=== PATIENT | male | born 1940 | race Caucasian/White ===

== ENCOUNTER → 2018-10-13 | Day surgery (SDC) | payer MEDICARE, OTHER ==
[~2018-10-13] MED LIST: ASPIRIN81 MG PO; FENOFIBRIC ACI105 MG PO; FENTANYL CITRATE/PF 100MCG/2 ML INJ ONE; LEVOTHYROXINE50 MCG PO; METFORMIN HCL500 MG PO; MIDAZOLAM HCL 2 MG/2 ML VIAL ONE; MULTIPLE VITAM1 EAC2 PO; PROPOFOL IV EMULSION 10 MG/ML 50 ML VIAL ONE; VASOTEC5 MG PO; VITAMIN E400 UNI1 PO; ZOCOR40 MG PO
--- NOTE | 2018-10-13 07:05 | NUR ---
SPIRITUAL CARE - Pre-Surgery Assessment: Pt in bed. Pt's at bedside. Pt reported supportive attention from family and friends. Intervention: I provided pastoral presence, hospitality, and sympathetic listening. I acquainted pt with availability of quantitative analyst while hospitalized. Outcome: Pt expressed appreciation for visit. No need for follow up indicated at this time. REINIER Delgadolain Spiritual Care Department O: [phone] Pager: [phone] ([phone] number calling from)
[2018-10-13 09:55] VITALS: BP 130/70
== END | disposition home or self-care (01) ==
LOC: OR 05:48
PROVIDERS: ATTEND Internal Medicine Gastroenterology
DX: K29.70 Gastritis, unspecified, without bleeding (principal); D12.5 Benign neoplasm of sigmoid colon; D12.8 Benign neoplasm of rectum; K26.9 Duodenal ulcer, unspecified as acute or chronic, without hemorrhage or perforation; K44.9 Diaphragmatic hernia without obstruction or gangrene; K29.80 Duodenitis without bleeding; K57.30 Diverticulosis of large intestine without perforation or abscess without bleeding; R15.9 Full incontinence of feces; K64.8 Other hemorrhoids; G47.33 Obstructive sleep apnea (adult) (pediatric); I10 Essential (primary) hypertension; E11.9 Type 2 diabetes mellitus without complications; E78.5 Hyperlipidemia, unspecified; Z01.810 Encounter for preprocedural cardiovascular examination; Z79.82 Long term (current) use of aspirin; Z79.84 Long term (current) use of oral hypoglycemic drugs; Z68.34 Body mass index [BMI] 34.0-34.9, adult
CPT/HCPCS: 36415; 43239; 45380; 45384; 82948; 88305; 88312; 93005; J2250; J2704

== ENCOUNTER 2018-12-02 17:21 | Inpatient (IN) | payer MEDICARE, OTHER ==
[~2018-12-02] VITALS: Ht 177.8 cm; Wt 99.4 kg
[~2018-12-02 17:21] MED LIST changes: -FENTANYL CITRATE/PF 100MCG/2 ML INJ ONE; -MIDAZOLAM HCL 2 MG/2 ML VIAL ONE; -PROPOFOL IV EMULSION 10 MG/ML 50 ML VIAL ONE
[2018-12-02] MEDS ORDERED: CEFTRIAXONE SOD 1 GM/NS 50 ML 50 ML IV STA (17:38)
[2018-12-02] MEDS ORDERED: SODIUM CHLORIDE 0.9% 1000ML 1,000 ML IV STA (17:38)
[2018-12-02] MEDS ORDERED: ASPIRIN 81 MG CHEW TAB PO ONE (17:45)
[2018-12-02] MEDS ORDERED: ALBUTEROL SULF 0.083% NEB SOLN 3 ML NEB NEB STA (17:46)
[2018-12-02] MEDS ORDERED: IPRATROPIUM BROMIDE 0.02% 2.5 ML NEB NEB STA (17:46)
[2018-12-02 18:08] LABS: ABG HCO3 24 mmol/L (23-28); ABG PCO2 37 mmHg (41-51); ABG PH 7.42 (7.31-7.41); ABG PO2 74 mmHg (80-105)
[2018-12-02 18:15] LABS: BILIRUBIN,URINE NEGATIVE (NEGATIVE); CLARITY,URINE SL CLOUDY (CLEAR); COLOR,URINE YELLOW (YELLOW); KETONES,URINE NEGATIVE (NEGATIVE); LEUKOCYTE ESTERASE ,URINE TRACE (NEGATIVE); NITRITE,URINE NEGATIVE (NEGATIVE); PROTEIN,URINE DIPSTICK TRACE (NEGATIVE); URINE UROBILINOGEN 1 mg/dL (0.2 - 1)
[2018-12-02 18:21] LABS: BASOPHILS % 0.2 % (0.0-1.0); EOSINOPHILS # (AUTO) 0.4 (0.0-0.4); EOSINOPHILS % 2.8 % (0.0-6.0); HEMATOCRIT 36.3 % (38.2-49.6); HEMOGLOBIN 11.3 g/dL (14.0-18.0); LYMPHOCYTES # (AUTO) 1.8 (1.0-3.2); LYMPHOCYTES % 13.2 % (18.0-39.1); MEAN CORPUSCULAR HEMOGLOBIN 28.5 pg (28-32); MEAN CORPUSCULAR HGB CONC 31.1 g/dL (31-35); MEAN CORPUSCULAR VOLUME 91.4 fL (81-99); MONOCYTES # (AUTO) 1.1 (0.2-0.8); NEUTROPHILS # (AUTO) 10.3 (2.1-6.9); NEUTROPHILS % 74.4 % (38.7-80.0); PLATELET COUNT 322 x10e3/uL (140-360); RED BLOOD COUNT 3.97 x10e6/uL (4.3-5.7); RED CELL DISTRIBUTION WIDTH 15.2 % (11.7-14.4)
[2018-12-02 18:24] LABS: INR 0.95; PROTHROMBIN TIME 13.2 seconds (11.9-14.5)
[2018-12-02 18:25] LABS: PARTIAL THROMBOPLASTIN TIME 24.3 seconds (23.8-35.5)
[2018-12-02 18:34] LABS: ALANINE AMINOTRANSFERASE 13 IU/L (0-55); ALBUMIN 3.3 g/dL (3.5-5.0); ALBUMIN/GLOBULIN RATIO 0.8 (0.8-2.0); ALKALINE PHOSPHATASE 51 IU/L (40-150); BLOOD UREA NITROGEN 17 mg/dL (7-26); BUN/CREATININE RATIO 16 (6-25); CALCIUM 10.5 mg/dL (8.4-10.2); CARBON DIOXIDE 25 mmol/L (22-29); CHLORIDE 106 mmol/L (98-107); CREATINE KINASE 137 IU/L (30-200); CREATININE, SERUM 1.09 mg/dL (0.72-1.25); EST GLOMERULAR FILTRATION RATE > 60 ML/MIN (60-); GLUCOSE 89 mg/dL (74-118); MAGNESIUM 2.3 MG/DL (1.3-2.1); SODIUM 143 mmol/L (136-145)
[2018-12-02] MEDS ORDERED: SUCCINYLCHOLINE CHLORIDE 20 MG/ML 10ML VIAL ONE (18:41)
[2018-12-02] MEDS ORDERED: ETOMIDATE 2 MG/ML 10 ML INJ IV ONE (18:41)
[2018-12-02] MEDS: AZITHROMYCIN 500MG/NS 250 ML 250 ML IV ONE ×2 (18:47→20:00)
[2018-12-02 18:53] LABS: THYROID STIMULATING HORMONE 2.637 uIU/mL (0.350-4.940)
--- NOTE | 2018-12-02 18:55 | NUR ---
bedside report given to trevor deleon
--- NOTE | 2018-12-02 18:57 | Diagnostic Imaging Report ---
EXAMINATION: PA and lateral views of the chest. COMPARISON: None CLINICAL HISTORY: Bronchitis DISCUSSION: Lines/tubes: None. Lungs: Large left effusion with adjacent atelectasis. Additional pathology may be obscured. Pulmonary venous congestion. Heart and mediastinum: Cardiomegaly. Bones and soft tissues: No acute bony abnormalities. IMPRESSION: Cardiomegaly with large left effusion and adjacent atelectasis. Additional pathology may be obscured. Pulmonary venous congestion. Signed by: Dr. Yuval Oconnell M.D. on 12/02/2018 6:54 PM
[2018-12-02] MEDS: ALBUTEROL SULF 0.083% NEB SOLN 3 ML NEB NEB SCH (19:00)
[2018-12-02] MEDS ORDERED: SODIUM CHLORIDE 0.9% 1000ML 1,000 ML IV SCH (19:39)
[2018-12-02] MEDS ORDERED: SODIUM CHLORIDE FLUSH 10 ML SYR INJ PRN (19:45)
[2018-12-02] MEDS ORDERED: AZITHROMYCIN 500MG/SOD CHL 0.9% 250ML BAG IV SCH (19:45)
[2018-12-02] MEDS ORDERED: CEFTRIAXONE SOD 1 GRAM/0.9% SOD CHL 50ML BAG IV SCH (19:45)
--- OUTSIDE RECORDS SUMMARY | 2018-12-02 19:52 | XMS REPORT ---
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 Allergies, Adverse Reactions, Alerts This patient has no known allergies or adverse reactions. Medications This patient has no known medications. Results Test Description Test Time Test Comments Text Results Atomic Results Result Comments CHEST 2 VIEWS 2018-12-02 18:50:00 [facility] [address] [address] Patient Name: ROLO MOLINA MR #: [id number] : 1940 Age/Sex: 78/M Req #: [id number] Adm Physician: Ordered by: STEFAN MERIDA MILL LABORER Report #: [id number] Location: ER Room/Bed: Procedure: [id number] DX/CHEST 2 VIEWS Exam Date: 12/02/18 Exam Time: 1810 REPORT STATUS: Signed EXAMINATION: PA and lateral views of the chest. JEFFRY RISON: None CLINICAL HISTORY: Bronchitis DISCUSSION: Lines/tubes: None. Lungs: Large left effusion with adjacent atelectasis. Additional pathology may be obscured. Pulmonary venous congestion. Heart and mediastinum: Cardiomegaly. Bones and soft tissues: No acute bony abnormalities. IMPRESSION: Cardiomegaly with large left effusion and adjacent atelectasis. Additional pathology may be obscured. Pulmonary venous congestion. Signed by: Dr. Barrington Ramires M.D. on 12/02/2018 6:54 PM Dictated By: BARRINGTON RAMIRES MD 53 Transcribed By: MARIBELL on 12/02/181853 COPY TO: STEFAN MERIDA NP
--- NOTE | 2018-12-02 20:02 | Diagnostic Imaging Report ---
EXAMINATION: CT scan of the chest with contrast. TECHNIQUE: Helical CT images of the chest were performed from the lung apices to the level of the adrenal glands after the intravenous administration of 100 cc of Omnipaque 300. Coronal and sagittal reformatted images were obtained.Dose modulation, iterative reconstruction, and/or weight based adjustment of the mA/kV was utilized to reduce the radiation dose to as low as reasonably achievable. COMPARISON: None. CLINICAL HISTORY:Bronchitis, pneumonia DISCUSSION: LINES/TUBES: None. LUNGS AND AIRWAYS: Interstitial lung disease with architectural distortion reticulations and subpleural honeycombing predominantly in the upper lungs. Compressive atelectasis in the left lung PLEURA: Circumferential left pleural thickening with focal nodular involvement in the left lower lung on image 57 which measures 2.4 cm. In the right lung on image 52 a 5.2 cm pleural-based nodular area HEART AND MEDIASTINUM: The thyroid gland is normal. The heart and pericardium are within normal limits. LYMPH NODES: Enlarged right lower paratracheal lymph node 1.4 cm. Additional mediastinal lymph nodes. ABDOMEN: Limited contrast-enhanced views of the upper abdomen show no abnormality within the visualized liver, spleen, pancreas, or kidneys. The adrenal glands are normal. BONES AND SOFT TISSUES: No acute bony abnormalities. IMPRESSION: Circumferential left pleural thickening/nodularity and right pleural mass with large left effusion. 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 Tissue sampling recommended. Underlying interstitial lung disease with fibrosis and honeycombing. Signed by: Dr. Yuval Oconnell M.D. on 12/02/2018 7:59 PM
[2018-12-02] MEDS: CEFTRIAXONE SOD 1 GM/NS 50 ML 50 ML IV SCH (20:21)
[2018-12-02] MEDS: AZITHROMYCIN 500MG/NS 250 ML 250 ML IV SCH (20:21)
[2018-12-02] MEDS ORDERED: VASOTEC5 MG PO (20:30)
[2018-12-02] MEDS ORDERED: ENALAPRIL MALEATE 5 MG TAB ONE (20:53)
[2018-12-02] MEDS ORDERED: NITROGLYCERIN 2% OINT 1 GM PKT ONE (20:53)
[2018-12-02] MEDS ORDERED: DIPHENHYDRAMINE HCL INJ 50 MG/ML VIAL IV PRN (21:00)
[2018-12-02] MEDS ORDERED: ONDANSETRON HCL INJ 2MG/ML 2ML 2 MG/ML VIAL IV PRN (21:00)
[2018-12-02] MEDS ORDERED: MORPHINE SULFATE 2 MG/ML SYR 1ML IV PRN (21:00)
[2018-12-02] MEDS ORDERED: FUROSEMIDE INJ 10 MG/ML 4 ML VIAL IV ONE (21:00)
[2018-12-02] MEDS ORDERED: NITROGLYCERIN 2% OINT 1 GM PKT TOP ONE ×2 (21:00→22:00)
[2018-12-02] MEDS ORDERED: ENALAPRILAT IV INJ 1.25 MG/ML VIAL IV PRN (21:00)
[2018-12-02] MEDS ORDERED: ACETAMINOPHEN 325 MG TAB PO PRN (21:00)
[2018-12-02] MEDS: ENALAPRIL MALEATE 5 MG TAB PO SCH (21:01)
--- NOTE | 2018-12-02 21:01 | NUR ---
pt c elevated bp. dr cee informed. to room to medicate c enalapril per orders. pt noted c increased sob. md to bedside. new orders rc'd.
[2018-12-02] MEDS ORDERED: ONDANSETRON HCL 4 MG ORAL DISINTEGRATING TAB PO PRN (21:15)
[2018-12-02] MEDS ORDERED: MORPHINE SULFATE INJ 4 MG/ML INJ 1ML IV PRN (21:15)
--- NOTE | 2018-12-02 21:15 | NUR ---
Note lashell in EDM - 12/02/18 at 2242 by MEDINA to room to insert hernandez catheter per orders. hernandez catheter inserted c difficulty. blood tinged urine return noted. dr cee informed. pt noted increasingly sob. bipap ordered. pt moved to room 1. rt called.
--- NOTE | 2018-12-02 21:20 | NUR ---
PT PLACED ON NRB UNTIL BIPAP ARRIVES. O2 SAT IMPROVED FROM 80'S TO 96%. PT RESP REMAIN LABORED. PT DIAPHORETIC. RT ARRIVED TO ROOM C BIPAP.
--- NOTE | 2018-12-02 21:50 | NUR ---
Note danyellevenus in EDM - 12/02/18 at 2230 by MEDINA pt noted becoming increasingly lethargic. hr remains elevated. see vs charting. resp rate 27 on bipap. md called to bedside to evaluate. states that pt to be intubated. charge nurse to room. rt called.
--- NOTE | 2018-12-02 21:50 | NUR ---
pt noted becoming increasingly lethargic. hr remains elevated. see vs charting. resp rate 27 on bipap. md called to bedside to evaluate. md states that pt to be intubated. charge nurse to room. rt called.
--- NOTE | 2018-12-02 22:03 | NUR ---
RESP, ER MD AT BEDSIDE
--- NOTE | 2018-12-02 22:05 | NUR ---
ETOMIDATE 20 MG IVP ADMINISTERED PER MD ORDERS SUCCINYLCHOLINE 100 MG IVP ADMINISTERED PER MD ORDERS
[2018-12-02] MEDS ORDERED: PROPOFOL IV EMULSION 10MG/ML 100 ML ONE (22:11)
[2018-12-02] MEDS ORDERED: ETOMIDATE 2 MG/ML 10 ML INJ IV STA (22:12)
[2018-12-02] MEDS ORDERED: PROPOFOL IV EMULSION 10MG/ML 100 ML IV STA (22:12)
[2018-12-02] MEDS ORDERED: SUCCINYLCHOLINE CHLORIDE 20 MG/ML 10ML VIAL IV STA (22:12)
[2018-12-02] MEDS ORDERED: SODIUM CHLORIDE 0.9% 100 ML 100 ML ONE (22:14)
[2018-12-02] MEDS ORDERED: IOPAMIDOL 370 MG/ML 200 ML INFUS..BTL INJ ONE (22:14)
--- NOTE | 2018-12-02 22:40 | NUR ---
PT REMAINS RESTLESS ON VENT. PROPOFOL INCREASED TO 15MCG/KG/MIN.
--- NOTE | 2018-12-02 22:47 | Diagnostic Imaging Report ---
EXAMINATION: CHEST SINGLE (PORTABLE) INDICATION: ^S/P INTUBATION COMPARISON: CT chest 12/02/2018. Chest x-ray 12/02/2018. FINDINGS: AP view TUBES and LINES: Endotracheal tube tip is 2.1 cm above the glenn. LUNGS: Lungs are moderately inflated. Diffuse interstitial reticular opacities bilaterally are again seen and has worsened. PLEURA: Large loculated left pleural effusion (left pleural thickening are seen on CT). HEART AND MEDIASTINUM: The cardiomediastinal silhouette is unremarkable. BONES AND SOFT TISSUES: No acute osseous lesion. Soft tissues are unremarkable. UPPER ABDOMEN: No free air under the diaphragm. IMPRESSION: 1. Tip of the endotracheal tube is 2.1 cm of the glenn. 2. Interstitial lung disease with UIP pattern is better seen on CT chest. However, interval development of diffuse airspace opacities, consistent with superimposed edema. 3. Left pleural effusion with left pleural thickening is better seen on recent CT and is suspicious for mesothelioma. Signed by: Dr. Dimitri Jacobson M.D. on 12/02/2018 10:43 PM
[2018-12-02 22:48] LABS: ABG HCO3 26 mmol/L (23-28); ABG PCO2 69 mmHg (41-51); ABG PH 7.17 (7.31-7.41); ABG PO2 101 mmHg (80-105)
--- NOTE | 2018-12-02 22:51 | NUR ---
PT REMAINS RESTLESS. PROPOFOL INCREASED TO 20MCG/KG/MIN
--- NOTE | 2018-12-02 22:55 | NUR ---
FAMILY CONTACT- RAJAT TORRES (DAUGHTER)
[2018-12-03] VITALS (27 sets, daily range): BP systolic 93–132; BP diastolic 58–74
[2018-12-03] MEDS: PROPOFOL IV EMULSION 10MG/ML 100 ML IV SCH ×3 (00:30→23:48)
[2018-12-03 00:49] LABS: ABG HCO3 26 mmol/L (23-28); ABG PCO2 53 mmHg (41-51); ABG PH 7.29 (7.31-7.41); ABG PO2 104 mmHg (80-105)
[2018-12-03] MEDS ORDERED: IPRATROPIUM BROMIDE 0.02% 2.5 ML NEB NEB SCH (01:00)
[2018-12-03] MEDS: FUROSEMIDE INJ 10 MG/ML 4 ML VIAL IV SCH ×2 (04:42→11:44)
[2018-12-03] MEDS: NITROGLYCERIN 2% OINT 1 GM PKT TOP SCH ×4 (05:47→16:10)
[2018-12-03 05:49] LABS: ABG HCO3 25 mmol/L (23-28); ABG PCO2 63 mmHg (41-51); ABG PO2 140 mmHg (80-105)
[2018-12-03 06:00] LABS: BASOPHILS % 0.2 % (0.0-1.0); EOSINOPHILS # (AUTO) 0.2 (0.0-0.4); EOSINOPHILS % 0.9 % (0.0-6.0); HEMATOCRIT 32.8 % (38.2-49.6); HEMOGLOBIN 10.2 g/dL (14.0-18.0); LYMPHOCYTES # (AUTO) 1.6 (1.0-3.2); LYMPHOCYTES % 8.7 % (18.0-39.1); MEAN CORPUSCULAR HEMOGLOBIN 28.7 pg (28-32); MEAN CORPUSCULAR HGB CONC 31.1 g/dL (31-35); MEAN CORPUSCULAR VOLUME 92.4 fL (81-99); MONOCYTES # (AUTO) 1.6 (0.2-0.8); MONOCYTES % 8.8 % (4.4-11.3); NEUTROPHILS # (AUTO) 14.8 (2.1-6.9); NEUTROPHILS % 80.3 % (38.7-80.0); PLATELET COUNT 332 x10e3/uL (140-360); RED BLOOD COUNT 3.55 x10e6/uL (4.3-5.7); RED CELL DISTRIBUTION WIDTH 15.3 % (11.7-14.4)
[2018-12-03 06:17] LABS: CREATINE KINASE MB 6.3 ng/mL (0-5.0)
[2018-12-03 07:38] LABS: ANION GAP 13.2 mmol/L (8-16); BLOOD UREA NITROGEN 17 mg/dL (7-26); BUN/CREATININE RATIO 15 (6-25); CALCIUM 9.4 mg/dL (8.4-10.2); CARBON DIOXIDE 26 mmol/L (22-29); CHLORIDE 107 mmol/L (98-107); EST GLOMERULAR FILTRATION RATE > 60 ML/MIN (60-); GLUCOSE 105 mg/dL (74-118); POTASSIUM 4.2 mmol/L (3.5-5.1); SODIUM 142 mmol/L (136-145)
[2018-12-03] MEDS: ALBUTEROL SULF 0.083% NEB SOLN 3 ML NEB NEB SCH ×5 (07:40→23:10)
[2018-12-03] MEDS: IPRATROPIUM BROMIDE 0.02% 2.5 ML NEB NEB SCH ×5 (07:40→23:10)
[2018-12-03] MEDS ORDERED: DEXTROSE 50% SYRINGE 50 ML IV PRN (08:45)
[2018-12-03] MEDS ORDERED: PANTOPRAZOLE 40 MG 10ML VIAL IV SCH (09:00)
[2018-12-03] MEDS: LEVOTHYROXINE SODIUM 50 MCG TAB PO SCH (09:00)
[2018-12-03] MEDS: FENOFIBRATE 145 MG TAB PO SCH (09:00)
[2018-12-03] MEDS: ENALAPRIL MALEATE 5 MG TAB PO SCH ×2 (09:00→16:09)
[2018-12-03] MEDS ORDERED: MIDAZOLAM HCL 2 MG/2 ML VIAL ONE (09:02)
[2018-12-03] MEDS ORDERED: FENTANYL CITRATE/PF 100MCG/2 ML INJ ONE (09:02)
[2018-12-03] MEDS: INSULIN LISPRO 100 UNIT/1 ML 3ML VIAL SQ SCH ×3 (11:30→20:50)
[2018-12-03] MEDS: FAMOTIDINE 20 MG/2 ML VIAL IV SCH ×2 (11:45→16:09)
--- NOTE | 2018-12-03 12:06 | Consultation ---
DATE OF CONSULTATION: 12/03/2018 Pulmonary Consultation Patient of Dr. Montero and Dr. Izquierdo. HISTORY OF PRESENT ILLNESS: Charming, but unfortunate 78-year-old gentleman admitted with shortness of breath, ill since July, decreased exercise tolerance, became more short of breath over the last few weeks, was diagnosed with bronchitis and then chest x-ray revealed loculated effusion and he was referred to the emergency room by Dr. Montero. PAST MEDICAL HISTORY: He has a history of diabetes, hypertension, and hyperlipidemia. ALLERGIES: NO KNOWN ALLERGIES. MEDICATIONS: Have included Levoxyl, metformin, Zocor, fenofibric acid, multivitamin, and Vasotec. He is a well-developed white male, in no acute distress. Easily arousable, surrounded by his family. PAST SURGICAL HISTORY: The patient has history of appendectomy in the past, gallbladder surgery, and colonoscopy in the past. SOCIAL HISTORY: He did smoke up to two packs a day for 30 years. FAMILY HISTORY: Positive for coronary artery disease. 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 PHYSICAL EXAMINATION: GENERAL: He is a well-developed white male looking his stated age. VITAL SIGNS: Temperature 97.7, blood pressure 114/70, respirations 18, and pulse 102. HEAD: Normocephalic, atraumatic. EYES: Extraocular movements intact. LUNGS: Diminished breath sounds, left chest. HEART: Regular rhythm. ABDOMEN: Nontender. EXTREMITIES: Nonedematous. IMPRESSION: Loculated left pleural effusion with rind, adenopathy, suspicious for cancer, most likely mesothelioma. PLAN: Plan is for chest tube drainage. Wean from mechanical ventilator support. The patient may require thoracoscopic surgery for diagnosis. We will discuss with Interventional Radiology, have requested closed pleural biopsy and chest tube drainage. Apparently, a closed biopsy needle is not available. Thank you for this kind referral. MD ARTEMIO Almeida/MODL /[id number]
[2018-12-03 12:25] LABS: BODY FLUID APPEARANCE TURBID; BODY FLUID COLOR RED; BODY FLUID TYPE PLEURAL
[2018-12-03 12:44] LABS: RBC,BODY FLUID 1152797 cells/uL
[2018-12-03 12:45] LABS: WBC,BODY FLUID 1758 cells/uL
--- NOTE | 2018-12-03 13:31 | NUR ---
Nutrition Intervention Note RD Recommendation(s) for Physician: -Rec continuous TF with Vital HP @60mL/hr, providing 1440kcal (+ additional 230kcal from propofol), 126g protein, and 1203mL water. -Rec 50mL free water flushes q4hr; additional water per MD discretion -Check daily labs, GI tolerance, and weight Plan of Care: RD following, monitoring for tolerance and adequacy, TF rec Nutrition reason for involvement: New TF RD Assessment 12/03 78yo M, who was admitted for SOB. Pt was intubated, sedated and on vent. Visited pt in the room. Propofol was running at 9.7mL/hr (230kcal). No pressor meds noted. Family on bedside to provide hx. Pt came from home. Per , pt was eating well SITE PHYSICIAN. Pt has attempted to lose weight through diet and exercise. Reported UBW ~250LB. No chewing or swallowing issue SITE PHYSICIAN. RD paged Dr. Garcia to obtain TF order at 1325. Will continue to monitor and follow. Principal Problems/Diagnoses: pleural effusion, PNA PMH: diabetes, hypertension, and hyperlipidemia GI: Abdomen soft, round, flatus present, LBM 12/03 Skin: no pressure wound noted Labs: (12/03) reviewed, WNL Meds: Pepcid, propofol, NaCl Ht: 70in Wt: 238lb BMI: 34.1kg/m2 IBW: 166lb Malnutrition Evaluation (12/03) The patient does not meet criteria for a specified degree of malnutrition at this time. Will re-evaluate at follow-up as appropriate. Weight loss: 12lbs of intentional weight loss with exercise and diet Fat loss: unable to evaluate Muscle loss: unable to evaluate Supporting Evidence: Fluid accumulation: unable to evaluate Functional Status: no changes Nutrition Prescription (Diet Order): Glucerna 1.5 @30mL/hr Estimated Nutritional Needs: Calories: 1650-1875kcal(22-25kcal/kg/d) Weight used: IBW Protein: 112 187g (112-187g) Weight used: IBW Diet Adequacy: Not meeting calorie needs, Not meeting protein needs TF has not started Diet Education Needs Assessment: Diet education indicated, but patient not appropriate for education at this time. Nutrition Care Level: mod (new TF) Nutrition Diagnosis: Inadequate oral intake related to current medical status (intubated/ventilated) as evidenced by pt requiring EN as main source of nutrition. Goal: Patient will meet 75-100% of estimated needs by follow up Progress: N/A Interventions: Composition, Rate, Route Monitoring/Evaluation: Total energy intake, Total protein intake, Formula/Solution, Weight change, Daily labs, gastric tolerance Signed: Mayte Gorman MS, RD, LD
[2018-12-03 13:52] LABS: LYMPHOCYTES,BODY FLUID 31 %; MONO/MACROPHG,BODY FLUID 6 %; NEUTROPHILS,BODY FLUID 63 %
--- NOTE | 2018-12-03 14:36 | NUR ---
Telephone order received from Dr. Garcia for Vital HP @25mL and advance as tolerated to goal of 60mL/hr with free water flushes @50mL q 4hr.
[2018-12-03 14:42] LABS: CREATINE KINASE MB 4.7 ng/mL (0-5.0)
--- NOTE | 2018-12-03 16:10 | NUR ---
DISCUSSED PT IN ROUNDS TODAY. PT REMAINS ON VENT; PROPOFOL GTT, ADKINS. L CHEST TUBE SURGERY CONSULT Radha MCDONALD
[2018-12-03 16:12] LABS: ABG HCO3 30 mmol/L (23-28); ABG PCO2 45 mmHg (41-51); ABG PH 7.43 (7.31-7.41); ABG PO2 105 mmHg (80-105)
--- NOTE | 2018-12-03 16:51 | Diagnostic Imaging Report ---
Exam: KUB. Clinical History: Pleural effusion. Tube placement. Comparison: Chest radiograph 12/02/2018 Findings: Frontal view of the abdomen demonstrates a nonobstructive bowel gas pattern with moderate retained stool. An enteric tube is seen with the distal tip over the left upper mid abdomen. Tube catheter over the left lateral chest. Impression: An enteric tube is seen with the distal tip over the left upper mid abdomen. Signed by: Dr. Jaime Terry M.D. on 12/03/2018 4:48 PM
--- NOTE | 2018-12-03 17:43 | History and Physical ---
HISTORY OF PRESENT ILLNESS: Mr. Causey is a pleasant 78-year-old man, who was sent from Dr. Montero's office today with complaint of shortness of breath and cough. PAST MEDICAL HISTORY: Significant for hypertension, hyperlipidemia, and hypothyroidism. PREVIOUS SURGICAL HISTORY: Included cholecystectomy in July 2001, remote vasectomy, appendectomy in 1987, microwave treatment for prostatic hypertrophy in June 2011. He is known to have some mild carotid disease on previous studies. HOME MEDICATIONS: Please see his chart. FAMILY HISTORY: Father of NH at age 56. Mother of NH at age 72. He has a brother, who had myocardial infarction at age 59. PERSONAL AND SOCIAL HISTORY: The patient smoked many years ago with a total of 60-pack years of smoking, smoking about one and half pack of cigarettes daily for 40 years. He worked in [employer] rooms in the [employer]. REVIEW OF SYSTEMS: CARDIAC: He is not known to have any previous myocardial infarction. Review of systems not fully available as the patient is intubated at this time. PHYSICAL EXAMINATION: GENERAL: Shows a pleasant white man, who does open his eyes, although he has propofol intravenous going. Blood pressure 125/70. HEAD, EYES, EARS, NOSE, AND THROAT: Unremarkable. NECK: No jugular venous distention visible. THORAX: Heart sounds S1, S2 are equal. No distinct murmur. LUNGS: Lung sounds are distant and dullness. ABDOMEN: Protuberant. EXTREMITIES: No cyanosis, clubbing, or edema. EKG shows sinus rhythm. Initial CBC shows hemoglobin 11.3, white count 13.8. Initial blood gas showed 7.42 pH, pCO2 37, pO2 74, but deteriorating later at 10:30 p.m. to a pH of 7.17, pCO2 69, pO2 101. Urinalysis is unremarkable. BNP is 53. Lactic acid 18.3. One troponin is abnormal at 0.592. Note, the patient had Cardiolite performed on December of 2012 that showed normal perfusion and EF 67%. Chest x-ray shows large pleural effusion. ASSESSMENT: 1. Respiratory insufficiency. 2. Large pleural effusion. 3. Abnormal troponin. PLAN: The patient has been intubated with pulmonary support. Appreciate Dr. Garcia's consultation. We will await thoracentesis and the results of that analysis. Further management based on clinical course. Prognosis is guarded. MD BLANE Rubio/JESENIA /[id number] cc: MD Homer Almeida
--- NOTE | 2018-12-03 17:48 | Diagnostic Imaging Report ---
EXAMINATION: CT-guided left chest tube placement. TECHNIQUE: CT images were obtained for guidance to place a left thoracostomy tube in a patient with a possible empyema. DLP: 1280.26 mGy-cm CLINICAL HISTORY: Respiratory distress DISCUSSION: Patient was on a respirator and on a propofol drip. He was continuously monitored by the Radiology nurse as well as the ICU nurse. Patient was placed in the oblique position with CT localization accomplished in the mid axillary line on the left. Full sterile barrier technique was utilized. Local anesthesia with 1% Xylocaine was accomplished. A 18-gauge Chiba needle was then placed into the fluid collection. An Amplatz 0.035 " superstiff wire was placed through the needle followed by serial dilatation with a Casey dilators. Subsequently a 14 [place] loop locking pigtail drainage catheter was placed. The line was attached to a Pleur-evac suction. Catheter was secured to the skin with 2-0 silk suture. Specimen was sent to the laboratory for culture and sensitivity. The pleural fluid was bloody. IMPRESSION: Successful CT-guided left thoracostomy tube placement. Signed by: Dr. Delano Trujillo DO on 12/03/2018 5:45 PM
[2018-12-03] MEDS: CEFTRIAXONE SOD 1 GM/NS 50 ML 50 ML IV SCH (20:05)
[2018-12-03] MEDS: AZITHROMYCIN 500MG/NS 250 ML 250 ML IV SCH (20:05)
[2018-12-03] MEDS: SIMVASTATIN 40 MG TAB PO SCH (20:49)
[2018-12-03] MEDS: HEPARIN SOD (PORCINE) 5,000 UNIT/ML VIAL SC SCH (22:08)
[2018-12-04] VITALS (25 sets, daily range): BP systolic 104–176; BP diastolic 60–99
[2018-12-04] MEDS: ALBUTEROL SULF 0.083% NEB SOLN 3 ML NEB NEB SCH ×6 (03:10→23:00)
[2018-12-04] MEDS: IPRATROPIUM BROMIDE 0.02% 2.5 ML NEB NEB SCH ×6 (03:10→23:00)
[2018-12-04 05:14] LABS: BASOPHILS % 0.2 % (0.0-1.0); EOSINOPHILS # (AUTO) 0.3 (0.0-0.4); EOSINOPHILS % 2.5 % (0.0-6.0); HEMATOCRIT 30.4 % (38.2-49.6); HEMOGLOBIN 9.5 g/dL (14.0-18.0); LYMPHOCYTES # (AUTO) 1.3 (1.0-3.2); LYMPHOCYTES % 10.6 % (18.0-39.1); MEAN CORPUSCULAR HEMOGLOBIN 28.5 pg (28-32); MEAN CORPUSCULAR HGB CONC 31.3 g/dL (31-35); MEAN CORPUSCULAR VOLUME 91.3 fL (81-99); MONOCYTES # (AUTO) 0.9 (0.2-0.8); MONOCYTES % 7.9 % (4.4-11.3); NEUTROPHILS # (AUTO) 9.3 (2.1-6.9); PLATELET COUNT 299 x10e3/uL (140-360); RED BLOOD COUNT 3.33 x10e6/uL (4.3-5.7); RED CELL DISTRIBUTION WIDTH 15.5 % (11.7-14.4)
[2018-12-04 05:43] LABS: ANION GAP 12.4 mmol/L (8-16); BLOOD UREA NITROGEN 20 mg/dL (7-26); BUN/CREATININE RATIO 19 (6-25); CALCIUM 9.2 mg/dL (8.4-10.2); CARBON DIOXIDE 28 mmol/L (22-29); CHLORIDE 106 mmol/L (98-107); CREATININE, SERUM 1.08 mg/dL (0.72-1.25); EST GLOMERULAR FILTRATION RATE > 60 ML/MIN (60-); GLUCOSE 125 mg/dL (74-118); POTASSIUM 3.4 mmol/L (3.5-5.1); SODIUM 143 mmol/L (136-145)
[2018-12-04] MEDS: NITROGLYCERIN 2% OINT 1 GM PKT TOP SCH ×6 (06:00→23:39)
[2018-12-04] MEDS: LEVOTHYROXINE SODIUM 50 MCG TAB PO SCH (06:12)
[2018-12-04] MEDS: PROPOFOL IV EMULSION 10MG/ML 100 ML IV SCH (06:41)
--- NOTE | 2018-12-04 06:41 | Diagnostic Imaging Report ---
EXAMINATION: CHEST SINGLE (PORTABLE) INDICATION: ^intubated COMPARISON: Chest x-ray 12/02/2018. FINDINGS: AP view TUBES and LINES: Endotracheal tube is in good position. Nasogastric tube tip is below the diaphragm. The side port is roughly at the GE junction. New left sided pigtail drainage catheter. LUNGS: Lungs are moderately inflated. Diffuse interstitial reticular opacities bilaterally are again seen and has improved. PLEURA: Large loculated left pleural effusion resolved with a new drainage tube in place. Associated pleural thickening remain present. HEART AND MEDIASTINUM: The cardiomediastinal silhouette is unremarkable. BONES AND SOFT TISSUES: No acute osseous lesion. Soft tissues are unremarkable. UPPER ABDOMEN: No free air under the diaphragm. IMPRESSION: 1. New left chest tube with drainage of the left pleural effusion. 2. Residual left pleural thickening is better seen on recent CT and is suspicious for mesothelioma. 3. Interstitial lung disease with UIP pattern is better seen on CT chest. Interval improvement of diffuse pulmonary edema. Signed by: Dr. Dimitri Jacobson M.D. on 12/04/2018 6:38 AM
[2018-12-04] MEDS: INSULIN LISPRO 100 UNIT/1 ML 3ML VIAL SQ SCH ×4 (07:30→20:35)
[2018-12-04] MEDS ORDERED: POTASSIUM CHLORIDE 20 MEQ TAB CR PO PRN (08:00)
[2018-12-04] MEDS: FENOFIBRATE 145 MG TAB PO SCH (08:34)
[2018-12-04] MEDS: PANTOPRAZOLE SOD 40 MG TABEC PO SCH (08:34)
[2018-12-04] MEDS: ENALAPRIL MALEATE 5 MG TAB PO SCH ×2 (08:34→16:58)
[2018-12-04] MEDS: HEPARIN SOD (PORCINE) 5,000 UNIT/ML VIAL SC SCH ×2 (08:35→20:22)
[2018-12-04] MEDS ORDERED: ACETAMINOPHEN/CODEINE 300MG - 30MG TAB PO PRN (09:00)
--- NOTE | 2018-12-04 09:00 | NUR ---
Dr Garcia at bedside; patient extubated to 2L NC. Addendum: 12/04/18 at 1120 by Carmina Bourgeois RN Amended: Links added.
[2018-12-04 09:49] LABS: ABG HCO3 28 mmol/L (23-28); ABG PCO2 41 mmHg (41-51); ABG PH 7.44 (7.31-7.41); ABG PO2 71 mmHg (80-105)
--- NOTE | 2018-12-04 16:30 | NUR ---
Unable to check back on the patient for PT eval this afternoon due to time constraints. Will f/u tomorrow. Nurse Made aware. Addendum: 12/04/18 at 1744 by Stas Tanner PT Amended: Links added.
--- NOTE | 2018-12-04 17:29 | NUR ---
70 mL serosanguineous fluid recorded from chest tube this shift.
[2018-12-04] MEDS: SIMVASTATIN 40 MG TAB PO SCH (20:28)
[2018-12-04] MEDS: CEFTRIAXONE SOD 1 GM/NS 50 ML 50 ML IV SCH (20:28)
[2018-12-04] MEDS: AZITHROMYCIN 500MG/NS 250 ML 250 ML IV SCH (20:35)
[2018-12-05] VITALS (22 sets, daily range): BP systolic 139–182; BP diastolic 70–103
[2018-12-05] MEDS: IPRATROPIUM BROMIDE 0.02% 2.5 ML NEB NEB SCH ×6 (01:25→22:45)
[2018-12-05] MEDS: ALBUTEROL SULF 0.083% NEB SOLN 3 ML NEB NEB SCH ×6 (01:26→22:45)
[2018-12-05 04:59] LABS: BASOPHILS % 0.2 % (0.0-1.0); EOSINOPHILS # (AUTO) 0.4 (0.0-0.4); EOSINOPHILS % 2.4 % (0.0-6.0); HEMOGLOBIN 9.9 g/dL (14.0-18.0); LYMPHOCYTES # (AUTO) 1.4 (1.0-3.2); LYMPHOCYTES % 9.5 % (18.0-39.1); MEAN CORPUSCULAR HEMOGLOBIN 28.3 pg (28-32); MEAN CORPUSCULAR HGB CONC 30.9 g/dL (31-35); MEAN CORPUSCULAR VOLUME 91.4 fL (81-99); MONOCYTES # (AUTO) 1.1 (0.2-0.8); MONOCYTES % 7.5 % (4.4-11.3); NEUTROPHILS # (AUTO) 11.7 (2.1-6.9); NEUTROPHILS % 79.6 % (38.7-80.0); PLATELET COUNT 328 x10e3/uL (140-360); RED CELL DISTRIBUTION WIDTH 15.2 % (11.7-14.4)
[2018-12-05 05:13] LABS: ANION GAP 11.1 mmol/L (8-16); CALCIUM 9.7 mg/dL (8.4-10.2); CREATININE, SERUM 1.18 mg/dL (0.72-1.25); POTASSIUM 4.1 mmol/L (3.5-5.1)
[2018-12-05] MEDS: LEVOTHYROXINE SODIUM 50 MCG TAB PO SCH (05:29)
[2018-12-05] MEDS: NITROGLYCERIN 2% OINT 1 GM PKT TOP SCH ×5 (05:29→23:05)
[2018-12-05] MEDS: INSULIN LISPRO 100 UNIT/1 ML 3ML VIAL SQ SCH ×4 (07:30→21:00)
[2018-12-05] MEDS: PANTOPRAZOLE SOD 40 MG TABEC PO SCH (07:41)
[2018-12-05] MEDS: FENOFIBRATE 145 MG TAB PO SCH (07:43)
[2018-12-05] MEDS: ENALAPRIL MALEATE 5 MG TAB PO SCH ×2 (07:43→16:34)
--- NOTE | 2018-12-05 09:11 | Diagnostic Imaging Report ---
EXAMINATION: CHEST SINGLE (PORTABLE) INDICATION: Empyema COMPARISON: Chest x-ray 12/04/2018. FINDINGS: TUBES and LINES: Interval extubation and removal of enteric tube. Left-sided pigtail drainage catheter in place. LUNGS: Lungs are moderately inflated. Persistent diffuse bilateral interstitial opacities. PLEURA: Small left pleural effusion with pleural thickening. No evidence of pneumothorax. HEART AND MEDIASTINUM: The cardiomediastinal silhouette is unremarkable. BONES AND SOFT TISSUES: No acute osseous abnormality. UPPER ABDOMEN: No free air under the diaphragm. IMPRESSION: Interval extubation and removal of enteric tube Left-sided chest tube in place with small pleural effusion. Residual left pleural thickening, better characterized on prior CT, suspicious for mesothelioma. Interstitial lung disease with UIP pattern is better seen on CT chest. Possible mild superimposed pulmonary interstitial edema. Signed by: Dr. Karl Anton MD on 12/05/2018 9:08 AM
[2018-12-05] MEDS: HEPARIN SOD (PORCINE) 5,000 UNIT/ML VIAL SC SCH ×2 (10:53→21:27)
[2018-12-05] MEDS: DOCUSATE SODIUM 100 MG CAP PO SCH ×2 (11:10→16:34)
[2018-12-05] MEDS: SIMVASTATIN 40 MG TAB PO SCH (21:26)
[2018-12-05] MEDS: CEFTRIAXONE SOD 1 GM/NS 50 ML 50 ML IV SCH (21:26)
[2018-12-06] VITALS (25 sets, daily range): BP systolic 109–174; BP diastolic 55–114
[2018-12-06] MEDS: ALBUTEROL SULF 0.083% NEB SOLN 3 ML NEB NEB SCH ×6 (02:25→23:20)
[2018-12-06] MEDS: IPRATROPIUM BROMIDE 0.02% 2.5 ML NEB NEB SCH ×6 (02:25→23:20)
[2018-12-06] MEDS: NITROGLYCERIN 2% OINT 1 GM PKT TOP SCH ×3 (06:00→17:07)
[2018-12-06] MEDS: LEVOTHYROXINE SODIUM 50 MCG TAB PO SCH (06:00)
[2018-12-06] MEDS: INSULIN LISPRO 100 UNIT/1 ML 3ML VIAL SQ SCH ×4 (07:30→20:59)
[2018-12-06] MEDS: PANTOPRAZOLE SOD 40 MG TABEC PO SCH (09:31)
[2018-12-06] MEDS: DOCUSATE SODIUM 100 MG CAP PO SCH ×2 (09:32→17:06)
[2018-12-06] MEDS: CHLORTHALIDONE 25 MG TAB PO SCH (09:33)
[2018-12-06] MEDS: FENOFIBRATE 145 MG TAB PO SCH (09:33)
[2018-12-06] MEDS: ENALAPRIL MALEATE 5 MG TAB PO SCH ×2 (09:33→17:07)
[2018-12-06] MEDS: AZITHROMYCIN 250 MG TAB PO SCH (09:33)
[2018-12-06] MEDS: HEPARIN SOD (PORCINE) 5,000 UNIT/ML VIAL SC SCH ×2 (09:34→20:38)
--- NOTE | 2018-12-06 19:00 | NUR ---
Report received. Assumed care. Assessment done. See interventions. Up in chair transferred to BSC. Attempted to have BM without results. Urinated in BSC 50 ml but had a wet diaper when he got up to BSC.
[2018-12-06] MEDS: CEFTRIAXONE SOD 1 GM/NS 50 ML 50 ML IV SCH (20:37)
[2018-12-06] MEDS: SIMVASTATIN 40 MG TAB PO SCH (20:37)
[2018-12-07] VITALS (21 sets, daily range): BP systolic 118–165; BP diastolic 62–81
--- NOTE | 2018-12-07 | NUR ---
Placed condom cath per pt request.
[2018-12-07] MEDS: NITROGLYCERIN 2% OINT 1 GM PKT TOP SCH ×2 (00:10→05:41)
[2018-12-07] MEDS: IPRATROPIUM BROMIDE 0.02% 2.5 ML NEB NEB SCH ×6 (03:12→23:00)
[2018-12-07] MEDS: ALBUTEROL SULF 0.083% NEB SOLN 3 ML NEB NEB SCH ×6 (03:12→23:00)
--- NOTE | 2018-12-07 05:38 | NUR ---
Only time he voided was on the BSC and very little in the condom cath bag. Condom cath replaced twice during the night. Diaper in place at this time.
[2018-12-07] MEDS: LEVOTHYROXINE SODIUM 50 MCG TAB PO SCH (05:41)
--- NOTE | 2018-12-07 06:39 | Diagnostic Imaging Report ---
EXAMINATION: CHEST SINGLE (PORTABLE) INDICATION: ^Left pleural effusion COMPARISON: Chest x-ray 12/05/2018 FINDINGS: AP view TUBES and LINES: Left-sided pigtail drainage catheter. LUNGS: Lungs are moderately inflated. Persistent diffuse bilateral interstitial opacities. PLEURA: Small left pleural effusion with pleural thickening. No evidence of pneumothorax. HEART AND MEDIASTINUM: The cardiomediastinal silhouette is unremarkable. BONES AND SOFT TISSUES: No acute osseous abnormality. UPPER ABDOMEN: No free air under the diaphragm. IMPRESSION: Left-sided chest tube in place with small pleural effusion. Residual left pleural thickening, better characterized on prior CT, suspicious for mesothelioma. Interstitial lung disease with UIP pattern is better seen on CT chest. Possible mild superimposed pulmonary interstitial edema. Signed by: Dr. Dimitri Jacobson M.D. on 12/07/2018 6:35 AM
[2018-12-07] MEDS: INSULIN LISPRO 100 UNIT/1 ML 3ML VIAL SQ SCH ×4 (07:30→21:00)
[2018-12-07] MEDS: DOCUSATE SODIUM 100 MG CAP PO SCH ×2 (08:19→16:36)
[2018-12-07] MEDS: FENOFIBRATE 145 MG TAB PO SCH (08:19)
[2018-12-07] MEDS: CHLORTHALIDONE 25 MG TAB PO SCH (08:19)
[2018-12-07] MEDS: ENALAPRIL MALEATE 5 MG TAB PO SCH ×2 (08:19→16:37)
[2018-12-07] MEDS: PANTOPRAZOLE SOD 40 MG TABEC PO SCH (08:19)
[2018-12-07] MEDS: AZITHROMYCIN 250 MG TAB PO SCH (08:20)
[2018-12-07] MEDS: HEPARIN SOD (PORCINE) 5,000 UNIT/ML VIAL SC SCH ×2 (08:42→21:00)
--- NOTE | 2018-12-07 13:12 | NUR ---
Nutrition Intervention Note RD Recommendation(s) for Physician: -Continue current diet. Plan of Care: RD following, monitoring for tolerance and adequacy. Nutrition reason for involvement:Follow up RD Assessment 12/07: Follow up: Pt was discussed in rounds. Pt was extubated on Tuesday 12/05 per nurse and has been advanced to a 1600 ADA diet. Propofol has been d/c. Pt was conversing with other medical providers at the time of RDs visit, spoke with nurse- pt is eating okay. Pt consumed 75% of B today and is tolerating diet per nurses feeding method and intake note (12/07) within EMR. Pt is okay to go to the floors per rounds. Will continue to monitor. 12/03 78yo M, who was admitted for SOB. Pt was intubated, sedated and on vent. Visited pt in the room. Propofol was running at 9.7mL/hr (230kcal). No pressor meds noted. Family on bedside to provide hx. Pt came from home. Per , pt was eating well RECORD PRESS TENDER. Pt has attempted to lose weight through diet and exercise. Reported UBW ~250LB. No chewing or swallowing issue RECORD PRESS TENDER. RD paged Dr. Garcia to obtain TF order at 1325. Will continue to monitor and follow. Principal Problems/Diagnoses: pleural effusion, PNA PMH: diabetes, hypertension, and hyperlipidemia GI: Abdomen soft, round, flatus-present, LBM: 12/07 Skin: no pressure wound noted Labs: 12/07: POC glucose: 132 (12/03) reviewed, WNL Meds: Abx, colace, protonix, synthroid, K-DUR, Insulin-lispro, Milk of mg, zofran Ht: 70in Wt: 230lb BMI: 33.0kg/m2 IBW: 166lb Malnutrition Evaluation (12/07) The patient does not meet criteria for a specified degree of malnutrition at this time. Will re-evaluate at follow-up as appropriate. Weight loss: 12lbs of intentional weight loss with exercise and diet Fat loss: unable to evaluate Muscle loss: unable to evaluate Supporting Evidence: Fluid accumulation: unable to evaluate Functional Status: no changes Nutrition Prescription (Diet Order): 1600 ADA diet Estimated Nutritional Needs: Calories: 1650-1875kcal (22-25kcal/kg/d) Weight used: IBW Protein: 112 187g (112-187g) Weight used: IBW Diet Adequacy: Meeting calorie needs, Meeting protein needs Diet Education Needs Assessment: Diet education indicated, but patient not appropriate for education at this time. Nutrition Care Level: low-pt is consuming 75% of meals per nursing note Nutrition Diagnosis: Inadequate oral intake related to current medical status (intubated/ventilated) as evidenced by pt requiring EN as main source of nutrition. Goal: Patient will meet 75-100% of estimated needs by follow up Progress: goal met Intervention on: Carb diet, recommended modifications, collaboration with other providers Monitoring/Evaluation: Total energy intake, Total protein intake, Weight change, and modified diet Signed: Flores Feliz RD, LD
--- NOTE | 2018-12-07 18:30 | NUR ---
PATIENT RECEIVED FROM ICU PER STRETCHER. ALERT AND VERBALLY RESPONSIVE. LEFT CHEST TUBE IN PLACE DRAINING SEROSANGUINEOUS FLUID; 37CC COLLECTED. DENIED PAIN AT THIS TIME. BED IN LOWER POSITION, WALKER PROVIDED. CALL LIGHT AT REACH, BED ALARM ACTIVATED. INSTRUCTED TO CALL FOR ASSISTANCE NEEDED.
--- NOTE | 2018-12-07 18:40 | NUR ---
pt transferred via bed w/ telemetry in place after report given to william. family is at bedside. pt tolerates transfer well.
--- NOTE | 2018-12-07 19:15 | NUR ---
patient received awake, alert, lying quietly in bed. no c/o pain noted. respirations even and unlabored. 02/2l/nc in use. left chest tube placed to 20 cm h20 suction. pm assessment complete. family noted at the bedside. patient/family instructed to call for assistance when needed.
[2018-12-07] MEDS: CEFTRIAXONE SOD 1 GM/NS 50 ML 50 ML IV SCH (20:00)
[2018-12-07] MEDS: SIMVASTATIN 40 MG TAB PO SCH (21:00)
[2018-12-07] MEDS ORDERED: SODIUM CHLORIDE 0.9% 250ML 250 ML ONE (21:09)
[2018-12-08] VITALS (7 sets, daily range): BP systolic 120–138; BP diastolic 53–68
[2018-12-08] MEDS: IPRATROPIUM BROMIDE 0.02% 2.5 ML NEB NEB SCH ×6 (03:00→23:15)
[2018-12-08] MEDS: ALBUTEROL SULF 0.083% NEB SOLN 3 ML NEB NEB SCH ×6 (03:00→23:15)
--- NOTE | 2018-12-08 04:25 | NUR ---
patient appears to be resting quietly. no distress noted. cpap in use. total output noted from chest tube at this time is 37 cc. noted at the bedside. patient/ instructed to call for assistance when needed.
[2018-12-08] MEDS: LEVOTHYROXINE SODIUM 50 MCG TAB PO SCH (05:39)
--- NOTE | 2018-12-08 07:23 | NUR ---
PATIENT ASSISTED WITH DIAPER CHANGE. LEFT CHEST TUBE IN PLACE WITH 50CC IN THE COLLECTING BOX. DRESSING DRY AND INTACT. O2 IN PLACE VIA N/C. BED IN LOWER POSITION, CALL LIGHT AT REACH.
[2018-12-08] MEDS: INSULIN LISPRO 100 UNIT/1 ML 3ML VIAL SQ SCH ×4 (07:30→21:00)
[2018-12-08] MEDS: PANTOPRAZOLE SOD 40 MG TABEC PO SCH (07:56)
[2018-12-08] MEDS: DOCUSATE SODIUM 100 MG CAP PO SCH ×2 (09:31→17:35)
[2018-12-08] MEDS: CHLORTHALIDONE 25 MG TAB PO SCH (09:31)
[2018-12-08] MEDS: AZITHROMYCIN 250 MG TAB PO SCH (09:31)
[2018-12-08] MEDS: ENALAPRIL MALEATE 5 MG TAB PO SCH ×2 (09:31→17:35)
[2018-12-08] MEDS: FENOFIBRATE 145 MG TAB PO SCH (09:31)
[2018-12-08] MEDS: HEPARIN SOD (PORCINE) 5,000 UNIT/ML VIAL SC SCH ×2 (09:36→21:00)
--- NOTE | 2018-12-08 11:41 | NUR ---
MD IN TO SEE PATIENT, AWAITING FOR PATHOLOGY. CHEST TUBE IN PLACE, IN BED WITH CALL LIGHT AT REACH.
--- NOTE | 2018-12-08 12:01 | NUR ---
PATIENT C/O ANXIETY, PRN MEDICATION GIVEN. PATIENT REASSESSED; STATED "I AM FEELING BETTER NOW". WILL CLOSELY MONITOR.
--- NOTE | 2018-12-08 16:14 | NUR ---
DISCUSSED PT IN ROUNDS. PT EXTUBATED 12/04/18. CPAP AT HS / O22L/NC. L CHEST TUBE INTACT W DECREASED OUTPUT. IV ABX; ROCEPHIN AND AZITH. PT TO EVAL THE PT. DISCUSSED POSSIBLE HOME W HOME HEALTH. DISCUSSED RN ASKING DOC ABOUT CT CLAMP AND DC.
--- NOTE | 2018-12-08 17:10 | NUR ---
PATIENT SITTING UP IN BED EATING DINNER, NO DIFFICULTY SWALLOWING OBSERVED. BED IN LOWER POSITION, CALL LIGHT AT REACH.
--- NOTE | 2018-12-08 19:00 | NUR ---
patient received awake, alert, lying quietly in bed. no c/o pain noted. respirations even and unlabored. 02/2l/nc in use. left chest tube dressing remains d,i. pm assessment complete. remains at the bedside. patient/ instructed to call for assistance when needed.
[2018-12-08] MEDS: SIMVASTATIN 40 MG TAB PO SCH (21:00)
[2018-12-08] MEDS: CEFTRIAXONE SOD 1 GM/NS 50 ML 50 ML IV SCH (21:15)
[2018-12-09] VITALS (8 sets, daily range): BP systolic 107–131; BP diastolic 55–73
--- NOTE | 2018-12-09 01:00 | NUR ---
pleur-evac changed at this time.
[2018-12-09] MEDS: IPRATROPIUM BROMIDE 0.02% 2.5 ML NEB NEB SCH ×5 (02:45→20:00)
[2018-12-09] MEDS: ALBUTEROL SULF 0.083% NEB SOLN 3 ML NEB NEB SCH ×5 (02:45→20:00)
[2018-12-09] MEDS: LEVOTHYROXINE SODIUM 50 MCG TAB PO SCH (05:27)
[2018-12-09 06:44] LABS: BASOPHILS % 0.2 % (0.0-1.0); EOSINOPHILS # (AUTO) 0.4 (0.0-0.4); EOSINOPHILS % 3.1 % (0.0-6.0); HEMATOCRIT 32.4 % (38.2-49.6); HEMOGLOBIN 10.1 g/dL (14.0-18.0); LYMPHOCYTES # (AUTO) 1.1 (1.0-3.2); LYMPHOCYTES % 7.7 % (18.0-39.1); MEAN CORPUSCULAR HEMOGLOBIN 28.5 pg (28-32); MEAN CORPUSCULAR HGB CONC 31.2 g/dL (31-35); MEAN CORPUSCULAR VOLUME 91.5 fL (81-99); MONOCYTES # (AUTO) 1.1 (0.2-0.8); MONOCYTES % 7.9 % (4.4-11.3); NEUTROPHILS # (AUTO) 11.5 (2.1-6.9); NEUTROPHILS % 80.3 % (38.7-80.0); PLATELET COUNT 370 x10e3/uL (140-360); RED BLOOD COUNT 3.54 x10e6/uL (4.3-5.7)
[2018-12-09 07:10] LABS: ALANINE AMINOTRANSFERASE 23 IU/L (0-55); ALBUMIN 2.5 g/dL (3.5-5.0); ALBUMIN/GLOBULIN RATIO 0.6 (0.8-2.0); ALKALINE PHOSPHATASE 52 IU/L (40-150); ANION GAP 12.7 mmol/L (8-16); BLOOD UREA NITROGEN 19 mg/dL (7-26); BUN/CREATININE RATIO 18 (6-25); CALCIUM 10.4 mg/dL (8.4-10.2); CARBON DIOXIDE 30 mmol/L (22-29); CHLORIDE 102 mmol/L (98-107); CREATININE, SERUM 1.04 mg/dL (0.72-1.25); EST GLOMERULAR FILTRATION RATE > 60 ML/MIN (60-); GLUCOSE 104 mg/dL (74-118); POTASSIUM 3.7 mmol/L (3.5-5.1); SODIUM 141 mmol/L (136-145)
[2018-12-09] MEDS: INSULIN LISPRO 100 UNIT/1 ML 3ML VIAL SQ SCH ×4 (07:30→20:42)
[2018-12-09] MEDS: AZITHROMYCIN 250 MG TAB PO SCH (09:00)
[2018-12-09] MEDS: PANTOPRAZOLE SOD 40 MG TABEC PO SCH (09:00)
[2018-12-09] MEDS: CHLORTHALIDONE 25 MG TAB PO SCH (09:00)
[2018-12-09] MEDS: DOCUSATE SODIUM 100 MG CAP PO SCH ×2 (09:00→16:47)
[2018-12-09] MEDS: FENOFIBRATE 145 MG TAB PO SCH (09:00)
[2018-12-09] MEDS: ENALAPRIL MALEATE 5 MG TAB PO SCH ×2 (09:00→16:47)
[2018-12-09] MEDS: HEPARIN SOD (PORCINE) 5,000 UNIT/ML VIAL SC SCH ×2 (09:00→20:50)
--- NOTE | 2018-12-09 09:00 | NUR ---
Pt received resting in bed with at bedside, alert and oriented x 4. Pt with left sided chest tube with no drainage noted. Pt Oriented to staff and surroundings, advised to press call pickering if help needed. Emotional support given. All meds given as ordered. Will monitor
--- NOTE | 2018-12-09 15:42 | NUR ---
WOUND CARE CONSULTATION: INITIAL EVALUATION Patient admitted from home to ER for Pleural Effusion, PNA HX: HTN, Hyperlipidemia, Hypothyroidism. WBC14.29 HGB10.1 HCT32.4 NEUT%80.3 [id number] ALB2.5 Wound Care Consulted for evaluation of sacral area. PATIENT VISIT: Patient in bed calm with spouse at bedside John Score 18 Alternating pressure Air mattress in place and set to patient current weight LOS 6 days Diapered Presents with blotchy redness to perirectal area. Stays moist. Voids on self. Sacral area pink moist and intact. No redness, no swelling noted. IMPRESSION: Early signs of Incontinence & Moisture Related Dermatitis. RECOMMENDATION: 1. Perineal, Perirectal and Bilateral Gluteal Areas - Wash areas with Mild Soap and Water. - Lantiseptic Cream q12H and PRN Soiling. 2. Encourage OOB Activity 3. Continue Alternating Pressure Air Mattress 4. HOB < / = to 30 Degrees as tolerated 5. Encourage turning and repositioning every 2 hours 6. Continue Moderate PUP Protocol. 7. Bilateral Heel Protectors / Offload Heels with Pillows While in Bed. Thank you for consulting with Wound Care. Addendum: 12/09/18 at 1549 by Yvan Rain RN Amended: Links added. Addendum: 12/09/18 at 1552 by Yvan Rain RN No Pressure Ulcers Identified
--- NOTE | 2018-12-09 17:19 | NUR ---
IMM LETTER WAS EXPLAINED TO PT. IMM LETTER WAS SIGNED AND COPY TO PT AND COPY TO CHART.
[2018-12-09] MEDS: LANOLIN 4.5 OZ OINT TP SCH ×2 (17:47→21:00)
--- NOTE | 2018-12-09 19:00 | NUR ---
patient received awake, alert, lying quietly in bed. no c/o pain noted. left chest tube site c,d,i. pm assessment complete. remains at the bedside. patient/ instructed to call for assistance when needed.
[2018-12-09] MEDS: CEFTRIAXONE SOD 1 GM/NS 50 ML 50 ML IV SCH (20:00)
[2018-12-09] MEDS: SIMVASTATIN 40 MG TAB PO SCH (20:50)
[2018-12-09] MEDS: BALSAM PERU/CASTOR OIL 60 GM OINT...G. TP SCH (21:00)
[2018-12-10] VITALS (8 sets, daily range): BP systolic 101–127; BP diastolic 56–63
[2018-12-10] MEDS: IPRATROPIUM BROMIDE 0.02% 2.5 ML NEB NEB SCH ×7 (03:00→23:45)
[2018-12-10] MEDS: ALBUTEROL SULF 0.083% NEB SOLN 3 ML NEB NEB SCH ×7 (03:00→23:45)
[2018-12-10] MEDS: LEVOTHYROXINE SODIUM 50 MCG TAB PO SCH (05:17)
[2018-12-10] MEDS: INSULIN LISPRO 100 UNIT/1 ML 3ML VIAL SQ SCH ×4 (07:30→21:00)
[2018-12-10] MEDS: FENOFIBRATE 145 MG TAB PO SCH (09:35)
[2018-12-10] MEDS: DOCUSATE SODIUM 100 MG CAP PO SCH ×2 (09:35→16:53)
[2018-12-10] MEDS: CHLORTHALIDONE 25 MG TAB PO SCH (09:35)
[2018-12-10] MEDS: ENALAPRIL MALEATE 5 MG TAB PO SCH ×2 (09:35→16:53)
[2018-12-10] MEDS: HEPARIN SOD (PORCINE) 5,000 UNIT/ML VIAL SC SCH (09:35)
[2018-12-10] MEDS: AZITHROMYCIN 250 MG TAB PO SCH (09:35)
[2018-12-10] MEDS: PANTOPRAZOLE SOD 40 MG TABEC PO SCH (09:35)
[2018-12-10] MEDS: LANOLIN 4.5 OZ OINT TP SCH ×2 (09:36→21:00)
[2018-12-10] MEDS: BALSAM PERU/CASTOR OIL 60 GM OINT...G. TP SCH ×2 (09:36→21:00)
--- NOTE | 2018-12-10 19:15 | NUR ---
patient received awake, alert, lying quietly in bed. no c/o pain noted. left chest tube remains to 20 cm H20 suction. respirations even and unlabored. pm assessment complete. remains at the bedside. patient/ instructed to call for assistance when needed.
[2018-12-10] MEDS: CEFTRIAXONE SOD 1 GM/NS 50 ML 50 ML IV SCH (20:00)
[2018-12-10] MEDS: SIMVASTATIN 40 MG TAB PO SCH (21:00)
--- NOTE | 2018-12-10 22:10 | NUR ---
consent obtained for VATS procedure tomorrow. here to see patient and discussed procedure and reason for procedure with patient/. patient verbalizes understanding of this. patient to remain npo after mn tonight.
[2018-12-11] VITALS (16 sets, daily range): BP systolic 101–129; BP diastolic 49–68
[2018-12-11] MEDS: IPRATROPIUM BROMIDE 0.02% 2.5 ML NEB NEB SCH ×6 (03:00→23:30)
[2018-12-11] MEDS: ALBUTEROL SULF 0.083% NEB SOLN 3 ML NEB NEB SCH ×6 (03:00→23:30)
--- NOTE | 2018-12-11 04:00 | NUR ---
bath given. patient remains npo. o c/o pain noted. remains at the bedside.
[2018-12-11] MEDS: LEVOTHYROXINE SODIUM 50 MCG TAB PO SCH (05:17)
[2018-12-11 06:18] LABS: BASOPHILS % 0.3 % (0.0-1.0); EOSINOPHILS # (AUTO) 0.5 (0.0-0.4); EOSINOPHILS % 3.1 % (0.0-6.0); HEMOGLOBIN 10.5 g/dL (14.0-18.0); LYMPHOCYTES # (AUTO) 1.7 (1.0-3.2); MEAN CORPUSCULAR HEMOGLOBIN 28.1 pg (28-32); MEAN CORPUSCULAR HGB CONC 30.9 g/dL (31-35); MEAN CORPUSCULAR VOLUME 90.9 fL (81-99); MONOCYTES # (AUTO) 1.1 (0.2-0.8); MONOCYTES % 7.5 % (4.4-11.3); NEUTROPHILS # (AUTO) 11.7 (2.1-6.9); NEUTROPHILS % 77.2 % (38.7-80.0); PLATELET COUNT 418 x10e3/uL (140-360); RED BLOOD COUNT 3.74 x10e6/uL (4.3-5.7); RED CELL DISTRIBUTION WIDTH 15.2 % (11.7-14.4)
[2018-12-11 07:01] LABS: ALANINE AMINOTRANSFERASE 28 IU/L (0-55); ALBUMIN 2.7 g/dL (3.5-5.0); ALBUMIN/GLOBULIN RATIO 0.6 (0.8-2.0); ALKALINE PHOSPHATASE 60 IU/L (40-150); ANION GAP 16.2 mmol/L (8-16); BLOOD UREA NITROGEN 20 mg/dL (7-26); BUN/CREATININE RATIO 18 (6-25); CALCIUM 10.4 mg/dL (8.4-10.2); CARBON DIOXIDE 30 mmol/L (22-29); CHLORIDE 104 mmol/L (98-107); CREATININE, SERUM 1.14 mg/dL (0.72-1.25); EST GLOMERULAR FILTRATION RATE > 60 ML/MIN (60-); GLUCOSE 101 mg/dL (74-118); POTASSIUM 4.2 mmol/L (3.5-5.1); SODIUM 146 mmol/L (136-145)
--- NOTE | 2018-12-11 07:24 | NUR ---
PATIENT IN BED RESTING WITH HEAD OF BED ELEVATED, NO DISTRESS NOTED. O2 VIA N/C, LEFT CHEST TUBE IN PLACE DRAINING SEROSANGUINEOUS FLUID, 75 CC IN THE CANISTER. DENIED PAIN AT THIS TIME. BED IN LOWER POSITION, CALL LIGHT AT REACH.
[2018-12-11] MEDS: INSULIN LISPRO 100 UNIT/1 ML 3ML VIAL SQ SCH ×3 (07:30→20:53)
[2018-12-11] MEDS: PANTOPRAZOLE SOD 40 MG TABEC PO SCH (07:30)
[2018-12-11] MEDS ORDERED: HEPARIN SOD/SOD CHLORIDE 1,000 ML ONE (08:23)
[2018-12-11] MEDS: AZITHROMYCIN 250 MG TAB PO SCH (09:00)
[2018-12-11] MEDS: FENOFIBRATE 145 MG TAB PO SCH (09:00)
[2018-12-11] MEDS: CHLORTHALIDONE 25 MG TAB PO SCH (09:00)
[2018-12-11] MEDS: LANOLIN 4.5 OZ OINT TP SCH ×2 (09:09→23:48)
[2018-12-11] MEDS: BALSAM PERU/CASTOR OIL 60 GM OINT...G. TP SCH ×2 (09:09→23:48)
--- NOTE | 2018-12-11 09:45 | NUR ---
PATIENT OFF UNIT TO OR.
[2018-12-11] MEDS ORDERED: BACITRACIN 50,000 UNIT VIAL ONE ×2 (10:03)
[2018-12-11] MEDS ORDERED: BUPIVACAINE 0.25%/EPI 30ML SDV INJ ONE (12:15)
[2018-12-11] MEDS ORDERED: ONDANSETRON HCL INJ 2MG/ML 2ML 2 MG/ML VIAL IV PRN (13:00)
[2018-12-11] MEDS ORDERED: ROCURONIUM BROMIDE 10 MG/ML 5ML VIAL ONE (14:07)
[2018-12-11] MEDS ORDERED: SEVOFLURANE INHAL SOLN 250 ML PEN BTL ONE (14:07)
[2018-12-11] MEDS ORDERED: LIDOCAINE HCL 2% LOCAL INJ 5 ML SDV VIAL INJ ONE (14:07)
[2018-12-11] MEDS ORDERED: ONDANSETRON HCL INJ 2MG/ML 2ML 2 MG/ML VIAL ONE (14:07)
[2018-12-11] MEDS ORDERED: CEFAZOLIN SOD 1 GM VIAL ONE (14:07)
[2018-12-11] MEDS ORDERED: PROPOFOL IV EMULSION 10 MG/ML 20 ML VIAL ONE (14:07)
[2018-12-11] MEDS ORDERED: GLYCOPYRROLATE INJ 1MG/ 5 ML SYR ONE (14:07)
[2018-12-11] MEDS ORDERED: ACETAMINOPHEN 1000 MG/100 ML IV ONE (14:07)
[2018-12-11] MEDS ORDERED: PHENYLEPHRINE HCL 1% 10 MG/ML VIAL ONE (14:07)
[2018-12-11] MEDS ORDERED: NEOSTIGMINE 5 MG/5ML SYR ONE (14:07)
[2018-12-11] MEDS ORDERED: DEXAMETHASONE SOD PHOS INJ 4 MG/ML VIAL ONE (14:07)
--- NOTE | 2018-12-11 14:35 | Diagnostic Imaging Report ---
Examination: Single AP view of the chest. COMPARISON: December 07, 2018 INDICATION: Line placement DISCUSSION: Lines/tubes: Right IJ catheter with tip over the SVC. Left chest tube replaces a pigtail catheter. Lungs: Stable probably interstitial opacities. Pleura: Small left effusion and pleural thickening. No pneumothorax. Heart and mediastinum: The heart and the mediastinum are unremarkable. Bones and soft tissues: No acute bony abnormalities. IMPRESSION: 1. Stable small left effusion and pleural thickening. 2. Underlying interstitial lung disease Signed by: Dr. Yuval Oconnell M.D. on 12/11/2018 2:32 PM
[2018-12-11] MEDS: SODIUM CHLORIDE 0.9% 1000ML 1,000 ML IV SCH (15:04)
[2018-12-11] MEDS: HYDROCODONE/APAP 7.5MG-325MG 1 EA TAB PO PRN (15:38)
[2018-12-11] MEDS: NITROGLYCERIN 2% OINT 1 GM PKT TOP SCH ×2 (15:55→23:56)
[2018-12-11] MEDS: ENALAPRIL MALEATE 5 MG TAB PO SCH (15:55)
[2018-12-11] MEDS: DOCUSATE SODIUM 100 MG CAP PO SCH (16:13)
[2018-12-11] MEDS ORDERED: ASCORBIC ACID 500 MG TAB PO SCH (17:00)
--- NOTE | 2018-12-11 20:02 | Operative Report ---
DATE OF PROCEDURE: 12/11/2018 SURGEON: Jimmy Dash MD PREOPERATIVE DIAGNOSIS: Left pleural effusion, rule out malignancy. 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 OPERATION PERFORMED: Left video-assisted thoracoscopic surgery with left pleurectomy, decortication, and pneumolysis. ANESTHESIA: General. COMPLICATIONS: None. ESTIMATED BLOOD LOSS: 200 mL. DESCRIPTION OF PROCEDURE: When the patient lying in bed in the lateral position under good general endotracheal anesthesia with a double-lumen tube, the left chest was prepped with Betadine solution and draped in the usual manner. An incision was made about the 5th interspace and using blunt dissection with the finger, the chest cavity was entered. Upon entering the chest cavity, we immediately could feel that there was a rather thickened pleura in the area and lung was fairly stuck all the way around. This area was then freed up bluntly and thoracoscope was placed into the chest cavity and during video thoracoscopy, we were then able to see there was what appeared to be a very extensive pleural based tumor, which was worse in the lower chest. The lung was then slowly and carefully from the anterior chest wall and then two more thoracoports were then placed, one anteriorly and one posteriorly, and we were then able to get a better look. Once lung was from the pleura, the overwhelming bulk of the tumor appeared to be pleural base and it extended all the way up to the top of the chest wall. Some of the pleural tumor was sent for frozen section, which came back as clearly malignant. We decided to go ahead and do a pleurectomy in order to decrease the bulk of the tumor and also to decrease the possibility of recurring effusion and also to allow the lung to hopefully stick to the chest wall to prevent any further pleura. The pleura was then slowly and carefully mobilized all the way around and down to the diaphragm and all the way up to the upper chest and he was then removed in very large chunks. There was very significant thickening of the pleura with most of the tumor being on the internal side of the pleura. We debulked the pleura as much as we could, staying away from the mediastinal aspect of it and as much of the tumor as could be removed was removed. Once this was done, the whole cavity was then irrigated and hemostasis was ascertained. The lung was freed up circumferentially. A #28 chest tube was then placed at the axillary line and sutured to the skin and the wounds were then closed in layers. The muscle was approximated with interrupted sutures of 2-0 Vicryl. The subcutaneous tissue was approximated with 2-0 Vicryl and the skin was closed with interrupted vertical mattress sutures of 3-0 silk. Dressings were applied. The sponge, lap, and needle count was correct. The patient tolerated the procedure well and returned to the recovery room in stable condition. MD BENEDICTO De Paz/JESENIA /[id number]
[2018-12-11] MEDS: CEFTRIAXONE SOD 1 GM/NS 50 ML 50 ML IV SCH (20:49)
[2018-12-11] MEDS: SIMVASTATIN 40 MG TAB PO SCH (20:53)
[2018-12-12] VITALS (27 sets, daily range): BP systolic 94–138; BP diastolic 44–69
--- NOTE | 2018-12-12 00:45 | NUR ---
Pt with decreased urine output of 20cc x 2 hours. The chest tube has given aprox 10cc/hr. Now trending bp and hr. Was HR 90, BP 116/63, now HR 102, BP 94/42. Pt denies complaints. Called and spoke with Dr Tushar Dash. Orders to check CBC now, give 500cc LR bolus, monitor, and report back as needed.
[2018-12-12] MEDS ORDERED: LACTATED RINGER'S 500 ML IV SCH (01:00)
[2018-12-12] MEDS: LACTATED RINGER'S 1,000 ML IV SCH ×3 (02:35→17:15)
[2018-12-12] MEDS: HYDROCODONE/APAP 7.5MG-325MG 1 EA TAB PO PRN ×5 (02:36→21:48)
[2018-12-12] MEDS: ALBUTEROL SULF 0.083% NEB SOLN 3 ML NEB NEB SCH ×6 (03:30→20:05)
[2018-12-12] MEDS: IPRATROPIUM BROMIDE 0.02% 2.5 ML NEB NEB SCH ×6 (03:30→20:05)
[2018-12-12] MEDS: SODIUM CHLORIDE 0.9% 1000ML 1,000 ML IV SCH ×2 (03:43→13:08)
[2018-12-12 04:54] LABS: BASOPHILS % 0.2 % (0.0-1.0); EOSINOPHILS % 0.1 % (0.0-6.0); HEMATOCRIT 31.8 % (38.2-49.6); HEMOGLOBIN 9.9 g/dL (14.0-18.0); LYMPHOCYTES # (AUTO) 1.2 (1.0-3.2); MEAN CORPUSCULAR HGB CONC 31.1 g/dL (31-35); MEAN CORPUSCULAR VOLUME 90.1 fL (81-99); MONOCYTES # (AUTO) 1.4 (0.2-0.8); MONOCYTES % 6.9 % (4.4-11.3); NEUTROPHILS # (AUTO) 17.9 (2.1-6.9); NEUTROPHILS % 86.1 % (38.7-80.0); PLATELET COUNT 385 x10e3/uL (140-360); RED BLOOD COUNT 3.53 x10e6/uL (4.3-5.7); RED CELL DISTRIBUTION WIDTH 15.5 % (11.7-14.4)
[2018-12-12 05:33] LABS: BASOPHILS % 0.2 % (0.0-1.0); EOSINOPHILS # (AUTO) 0.1 (0.0-0.4); EOSINOPHILS % 0.4 % (0.0-6.0); HEMATOCRIT 30.5 % (38.2-49.6); HEMOGLOBIN 9.6 g/dL (14.0-18.0); LYMPHOCYTES # (AUTO) 1.3 (1.0-3.2); LYMPHOCYTES % 7.6 % (18.0-39.1); MEAN CORPUSCULAR HEMOGLOBIN 28.5 pg (28-32); MEAN CORPUSCULAR HGB CONC 31.5 g/dL (31-35); MEAN CORPUSCULAR VOLUME 90.5 fL (81-99); MONOCYTES # (AUTO) 1.5 (0.2-0.8); MONOCYTES % 8.5 % (4.4-11.3); NEUTROPHILS # (AUTO) 14.4 (2.1-6.9); NEUTROPHILS % 82.4 % (38.7-80.0); PLATELET COUNT 368 x10e3/uL (140-360); RED BLOOD COUNT 3.37 x10e6/uL (4.3-5.7); RED CELL DISTRIBUTION WIDTH 15.5 % (11.7-14.4)
[2018-12-12] MEDS: LEVOTHYROXINE SODIUM 50 MCG TAB PO SCH (05:40)
[2018-12-12] MEDS: NITROGLYCERIN 2% OINT 1 GM PKT TOP SCH ×3 (05:41→17:40)
--- NOTE | 2018-12-12 05:48 | Diagnostic Imaging Report ---
EXAMINATION: CHEST SINGLE (PORTABLE) COMPARISON: 12/11/2018 INDICATION: Pleural effusion ^POST-OP ^[id number] ^0523 ^Y DISCUSSION: Frontal view of the chest obtained at 0523 hours. HEART AND MEDIASTINUM: The heart is top normal in size to mildly enlarged. LINES: Right IJ catheter terminates in the SVC. Left chest tube is stable in position with the tip at the apex. LUNGS: Stable prominent interstitium and pulmonary vasculature. PLEURA: Left lateral pleural thickening is stable. No large effusions. No pneumothorax. BONES AND SOFT TISSUES: No focal osseous lesion. The soft tissues are normal. IMPRESSION: Stable prominence of the pulmonary interstitium and pulmonary vasculature. No change in lateral left pleural thickening/pleural effusion. No pneumothorax. Signed by: Dr. Lidia Castillo MD on 12/12/2018 5:45 AM
[2018-12-12 05:56] LABS: ANION GAP 12.1 mmol/L (8-16); BLOOD UREA NITROGEN 21 mg/dL (7-26); BUN/CREATININE RATIO 21 (6-25); CALCIUM 9.2 mg/dL (8.4-10.2); CARBON DIOXIDE 28 mmol/L (22-29); CHLORIDE 102 mmol/L (98-107); CREATININE, SERUM 1.01 mg/dL (0.72-1.25); EST GLOMERULAR FILTRATION RATE > 60 ML/MIN (60-); GLUCOSE 107 mg/dL (74-118); POTASSIUM 4.1 mmol/L (3.5-5.1); SODIUM 138 mmol/L (136-145)
[2018-12-12] MEDS: INSULIN LISPRO 100 UNIT/1 ML 3ML VIAL SQ SCH ×4 (07:14→21:00)
[2018-12-12] MEDS: DOCUSATE SODIUM 100 MG CAP PO SCH ×3 (08:38→17:42)
[2018-12-12] MEDS: LANOLIN 4.5 OZ OINT TP SCH ×2 (08:38→21:49)
[2018-12-12] MEDS: CHLORTHALIDONE 25 MG TAB PO SCH (08:38)
[2018-12-12] MEDS: BALSAM PERU/CASTOR OIL 60 GM OINT...G. TP SCH ×2 (08:38→21:45)
[2018-12-12] MEDS: PANTOPRAZOLE SOD 40 MG TABEC PO SCH (08:38)
[2018-12-12] MEDS: ENALAPRIL MALEATE 5 MG TAB PO SCH ×2 (08:38→16:37)
[2018-12-12] MEDS: FENOFIBRATE 145 MG TAB PO SCH (08:38)
[2018-12-12] MEDS: AZITHROMYCIN 250 MG TAB PO SCH (08:38)
[2018-12-12] MEDS ORDERED: ZINC SULFATE 220 MG CAP PO SCH (09:00)
[2018-12-12] MEDS ORDERED: MULTIVITAMINS/MINERALS TAB PO SCH (09:00)
--- NOTE | 2018-12-12 09:00 | NUR ---
ENCOURAGED PATIENT TO MOVE AROUND IN BED. PATIENT CAN TURN ON HIS OWN AND REPOSITION SELF.
[2018-12-12] MEDS: SIMVASTATIN 40 MG TAB PO SCH (21:48)
[2018-12-13] VITALS (26 sets, daily range): BP systolic 93–136; BP diastolic 50–78
[2018-12-13] MEDS: HYDROCODONE/APAP 7.5MG-325MG 1 EA TAB PO PRN ×5 (03:15→21:56)
[2018-12-13] MEDS: IPRATROPIUM BROMIDE 0.02% 2.5 ML NEB NEB SCH ×6 (04:15→23:15)
[2018-12-13] MEDS: ALBUTEROL SULF 0.083% NEB SOLN 3 ML NEB NEB SCH ×6 (04:15→23:15)
[2018-12-13 05:23] LABS: BASOPHILS % 0.2 % (0.0-1.0); EOSINOPHILS # (AUTO) 0.3 (0.0-0.4); EOSINOPHILS % 2.2 % (0.0-6.0); HEMATOCRIT 28.7 % (38.2-49.6); HEMOGLOBIN 8.9 g/dL (14.0-18.0); LYMPHOCYTES % 7.8 % (18.0-39.1); MEAN CORPUSCULAR HEMOGLOBIN 28.5 pg (28-32); MONOCYTES # (AUTO) 1.2 (0.2-0.8); MONOCYTES % 9.4 % (4.4-11.3); NEUTROPHILS # (AUTO) 10.5 (2.1-6.9); NEUTROPHILS % 79.3 % (38.7-80.0); PLATELET COUNT 315 x10e3/uL (140-360); RED BLOOD COUNT 3.12 x10e6/uL (4.3-5.7); RED CELL DISTRIBUTION WIDTH 15.7 % (11.7-14.4)
[2018-12-13] MEDS: HYDROMORPHONE 2MG/ML 2 MG/ML ML IV PRN ×3 (05:24→05:47)
[2018-12-13] MEDS: NITROGLYCERIN 2% OINT 1 GM PKT TOP SCH ×4 (06:00→16:40)
[2018-12-13 06:01] LABS: ANION GAP 11.9 mmol/L (8-16); BLOOD UREA NITROGEN 16 mg/dL (7-26); BUN/CREATININE RATIO 16 (6-25); CALCIUM 9.4 mg/dL (8.4-10.2); CARBON DIOXIDE 29 mmol/L (22-29); CHLORIDE 99 mmol/L (98-107); CREATININE, SERUM 1.01 mg/dL (0.72-1.25); EST GLOMERULAR FILTRATION RATE > 60 ML/MIN (60-); GLUCOSE 95 mg/dL (74-118); POTASSIUM 3.9 mmol/L (3.5-5.1); SODIUM 136 mmol/L (136-145)
--- NOTE | 2018-12-13 06:46 | Diagnostic Imaging Report ---
EXAMINATION: CHEST SINGLE (PORTABLE) COMPARISON: Chest x-ray 12/12/2018 INDICATION: Pleural effusion ^POST-OP ^[id number] ^0600 ^Y DISCUSSION: Frontal view of the chest obtained at 0558 hours. HEART AND MEDIASTINUM: Stable cardiomegaly LINES: Right IJ catheter remains in the SVC. Left chest tube is stable in position terminating at the apex LUNGS: Stable prominent pulmonary vasculature. Improved interstitial prominence. PLEURA: Lateral left pleural thickening/effusion is stable. No pneumothorax. BONES AND SOFT TISSUES: No focal osseous lesion. The soft tissues are normal. IMPRESSION: Stable support devices. Stable left lateral pleural thickening/pleural effusion. No pneumothorax. Stable prominence of the pulmonary vasculature. Improved interstitial edema. Signed by: Dr. Lidia Castillo MD on 12/13/2018 6:43 AM
[2018-12-13] MEDS: LEVOTHYROXINE SODIUM 50 MCG TAB PO SCH (07:05)
[2018-12-13] MEDS: INSULIN LISPRO 100 UNIT/1 ML 3ML VIAL SQ SCH ×4 (07:30→21:00)
[2018-12-13] MEDS: ENALAPRIL MALEATE 5 MG TAB PO SCH ×2 (08:36→16:32)
[2018-12-13] MEDS: CHLORTHALIDONE 25 MG TAB PO SCH (08:36)
[2018-12-13] MEDS: PANTOPRAZOLE SOD 40 MG TABEC PO SCH (08:36)
[2018-12-13] MEDS: FENOFIBRATE 145 MG TAB PO SCH (08:36)
[2018-12-13] MEDS: DOCUSATE SODIUM 100 MG CAP PO SCH ×2 (08:36→16:31)
--- NOTE | 2018-12-13 08:41 | NUR ---
patient assisted to edge of bed for breakfast.
[2018-12-13] MEDS: AZITHROMYCIN 250 MG TAB PO SCH (09:00)
[2018-12-13] MEDS: LANOLIN 4.5 OZ OINT TP SCH ×2 (09:00→21:55)
[2018-12-13] MEDS: BALSAM PERU/CASTOR OIL 60 GM OINT...G. TP SCH ×2 (10:11→21:55)
[2018-12-13] MEDS: SIMVASTATIN 40 MG TAB PO SCH (21:55)
--- NOTE | 2018-12-13 22:23 | NUR ---
Sterile dressing change to right IJ. No complications noted.
[2018-12-14] VITALS (21 sets, daily range): BP systolic 101–127; BP diastolic 51–97
[2018-12-14] MEDS ORDERED: DEXMEDETOMIDINE HCL 200 MCG in SODIUM CHLORIDE 0.9% 50ML 48 ML IV PRN (02:45)
[2018-12-14] MEDS: IPRATROPIUM BROMIDE 0.02% 2.5 ML NEB NEB SCH ×6 (04:15→23:15)
[2018-12-14] MEDS: ALBUTEROL SULF 0.083% NEB SOLN 3 ML NEB NEB SCH ×6 (04:15→23:15)
[2018-12-14] MEDS: HYDROCODONE/APAP 7.5MG-325MG 1 EA TAB PO PRN ×3 (05:04→20:57)
--- NOTE | 2018-12-14 05:28 | Diagnostic Imaging Report ---
EXAMINATION: CHEST SINGLE (PORTABLE) COMPARISON: Chest x-ray 12/13/2018 INDICATION: Postop, pleural effusion ^POST-OP ^Y DISCUSSION: Frontal view of the chest obtained at 0510 hours. HEART AND MEDIASTINUM: Stable cardiomegaly LINES: Right IJ catheter remains in the SVC. Left chest tube terminates at the apex and is stable in position. LUNGS: Stable hyperinflation. Pulmonary vasculature is prominent and stable in appearance. Bibasilar atelectasis, left greater than right, is similar PLEURA: Thickening of the left pleura is redemonstrated tracking laterally. No pneumothorax. No evidence of right pleural effusion. BONES AND SOFT TISSUES: No focal osseous lesion. The soft tissues are normal. IMPRESSION: 1. Stable support devices. 2. Stable cardiomegaly and pulmonary vascular congestion. 3. Stable left pleural thickening/pleural effusion. 4. Stable bibasilar atelectasis. Signed by: Dr. Lidia Castillo MD on 12/14/2018 5:25 AM
[2018-12-14] MEDS: LEVOTHYROXINE SODIUM 50 MCG TAB PO SCH (05:36)
[2018-12-14] MEDS: NITROGLYCERIN 2% OINT 1 GM PKT TOP SCH ×4 (05:37→16:50)
[2018-12-14 06:01] LABS: BASOPHILS % 0.3 % (0.0-1.0); EOSINOPHILS # (AUTO) 0.3 (0.0-0.4); EOSINOPHILS % 2.8 % (0.0-6.0); HEMATOCRIT 28.4 % (38.2-49.6); HEMOGLOBIN 8.9 g/dL (14.0-18.0); LYMPHOCYTES # (AUTO) 1.6 (1.0-3.2); LYMPHOCYTES % 13.6 % (18.0-39.1); MEAN CORPUSCULAR HEMOGLOBIN 28.7 pg (28-32); MEAN CORPUSCULAR HGB CONC 31.3 g/dL (31-35); MEAN CORPUSCULAR VOLUME 91.6 fL (81-99); MONOCYTES % 8.6 % (4.4-11.3); NEUTROPHILS # (AUTO) 8.8 (2.1-6.9); NEUTROPHILS % 73.6 % (38.7-80.0); PLATELET COUNT 328 x10e3/uL (140-360); RED CELL DISTRIBUTION WIDTH 15.6 % (11.7-14.4)
[2018-12-14 06:23] LABS: ANION GAP 12.8 mmol/L (8-16); BLOOD UREA NITROGEN 16 mg/dL (7-26); BUN/CREATININE RATIO 16 (6-25); CALCIUM 9.6 mg/dL (8.4-10.2); CARBON DIOXIDE 31 mmol/L (22-29); CHLORIDE 99 mmol/L (98-107); CREATININE, SERUM 0.97 mg/dL (0.72-1.25); EST GLOMERULAR FILTRATION RATE > 60 ML/MIN (60-); GLUCOSE 101 mg/dL (74-118); POTASSIUM 3.8 mmol/L (3.5-5.1); SODIUM 139 mmol/L (136-145)
[2018-12-14] MEDS: INSULIN LISPRO 100 UNIT/1 ML 3ML VIAL SQ SCH ×4 (07:30→21:00)
[2018-12-14] MEDS: CHLORTHALIDONE 25 MG TAB PO SCH (08:32)
[2018-12-14] MEDS: DOCUSATE SODIUM 100 MG CAP PO SCH ×2 (08:32→16:49)
[2018-12-14] MEDS: FENOFIBRATE 145 MG TAB PO SCH (08:32)
[2018-12-14] MEDS: ENALAPRIL MALEATE 5 MG TAB PO SCH ×2 (08:32→16:50)
[2018-12-14] MEDS: PANTOPRAZOLE SOD 40 MG TABEC PO SCH (08:32)
[2018-12-14] MEDS ORDERED: DOCUSATE SODIUM 100 MG CAP PO SCH (09:00)
[2018-12-14] MEDS: MAGNESIUM HYDROXIDE 30 ML UDC PO PRN (10:11)
[2018-12-14] MEDS: BALSAM PERU/CASTOR OIL 60 GM OINT...G. TP SCH (10:11)
[2018-12-14] MEDS: LANOLIN 4.5 OZ OINT TP SCH (10:11)
[2018-12-14] MEDS ORDERED: ONDANSETRON HCL 4 MG ORAL DISINTEGRATING TAB PO PRN (10:45)
[2018-12-14] MEDS: AZITHROMYCIN 250 MG TAB PO SCH (10:58)
--- NOTE | 2018-12-14 11:23 | NUR ---
WOUND CARE CONSULTATION: PUP SCREEN John Score 17 ( trending up) Moderate PUP Active LOS 11 Days Age: 78 y/o Alternating Pressure Air Mattress in place and set to current patient weight Patient OOB to Chair. Chest tube to Left Flank, requiring assistance to transfer out of bed. PATIENT VISIT: No Pressure Ulcers Identified RECOMMENDATION: ( Continue Current Treatment Plan ) 1. Perineal, Perirectal and Bilateral Gluteal Areas - Wash areas with Mild Soap and Water. - Lantiseptic Cream q12H and PRN Soiling. 2. Encourage OOB Activity 3. Continue Alternating Pressure Air Mattress 4. HOB < / = to 30 Degrees as tolerated 5. Encourage turning and repositioning every 2 hours 6. Continue Moderate PUP Protocol. 7. Bilateral Heel Protectors / Offload Heels with Pillows While in Bed. Addendum: 12/14/18 at 1128 by Yvan Rain RN Amended: Links added.
--- NOTE | 2018-12-14 13:03 | NUR ---
Nutrition Intervention Note RD Recommendation(s) for Physician: -Continue current diet. Plan of Care: RD following, monitoring for tolerance and adequacy. Nutrition reason for involvement: Follow up RD Assessment 12/14: Pt seen for follow up. Pt discussed at am rounds. Pt s/p surgery on 12/11 related to lung cancer, on O2 per nasal canula, and now with possible transfer to [facility] per RN. Pt hasn't had BM since 12/10, given milk of magnesia today per RN. Pt continues to eat 75-100% of meals. Will continue to monitor. 12/07: Follow up: Pt was discussed in rounds. Pt was extubated on Tuesday 12/05 per nurse and has been advanced to a 1600 ADA diet. Propofol has been d/c. Pt was conversing with other medical providers at the time of RDs visit, spoke with nurse- pt is eating okay. Pt consumed 75% of B today and is tolerating diet per nurses feeding method and intake note (12/07) within EMR. Pt is okay to go to the floors per rounds. Will continue to monitor. 12/03 78yo M, who was admitted for SOB. Pt was intubated, sedated and on vent. Visited pt in the room. Propofol was running at 9.7mL/hr (230kcal). No pressor meds noted. Family on bedside to provide hx. Pt came from home. Per , pt was eating well BOILER TESTER. Pt has attempted to lose weight through diet and exercise. Reported UBW ~250LB. No chewing or swallowing issue BOILER TESTER. RD paged Dr. Garcia to obtain TF order at 1325. Will continue to monitor and follow. Principal Problems/Diagnoses: pleural effusion, PNA PMH: diabetes, hypertension, and hyperlipidemia GI: Abdomen soft, round, flatus-present, LBM: 12/10 Skin: no pressure wound noted Labs: 12/14: reviewed; WNL 12/07: POC glucose: 132 (12/03) reviewed, WNL Meds: Abx, colace, protonix, synthroid, K-DUR, Insulin-humalog, Milk of mg, zofran, tricor, zocor Ht: 70in Wt: 230lb BMI: 33.0kg/m2 IBW: 166lb Malnutrition Evaluation (12/07) The patient does not meet criteria for a specified degree of malnutrition at this time. Will re-evaluate at follow-up as appropriate. Weight loss: 12lbs of intentional weight loss with exercise and diet Fat loss: unable to evaluate Muscle loss: unable to evaluate Supporting Evidence: Fluid accumulation: unable to evaluate Functional Status: no changes Nutrition Prescription (Diet Order): 1800 ADA diet Estimated Nutritional Needs: Calories: 1650-1875kcal (22-25kcal/kg/d) Weight used: IBW Protein: 112 187g (112-187g) Weight used: IBW Diet Adequacy: Meeting calorie needs, Meeting protein needs Diet Education Needs Assessment: Diet education indicated, but patient not appropriate for education at this time. Nutrition Care Level: Low Nutrition Diagnosis: Inadequate oral intake related to current medical status (intubated/ventilated) as evidenced by pt requiring EN as main source of nutrition. Goal: Patient will meet 75-100% of estimated needs by follow up Progress: goal met Intervention on: Carb diet, recommended modifications, collaboration with other providers Monitoring/Evaluation: Total energy intake, Total protein intake, Weight change, and modified diet Signed: Annette Faulkner RD, LD, CNSC
[2018-12-14] MEDS: HEPARIN SOD (PORCINE) 5,000 UNIT/ML VIAL SC SCH ×2 (13:24→20:56)
--- NOTE | 2018-12-14 18:33 | NUR ---
Sewell catheter removed per Dr Jarrett Dash. Awaiting [facility] bed availability.
[2018-12-14] MEDS ORDERED: CITRATE OF MAGNESIA 300ML BOTTLE PO ONE (19:45)
[2018-12-14] MEDS: SIMVASTATIN 40 MG TAB PO SCH (20:54)
[2018-12-15] VITALS (9 sets, daily range): BP systolic 97–119; BP diastolic 50–68
[2018-12-15] MEDS: BALSAM PERU/CASTOR OIL 60 GM OINT...G. TP SCH ×3 (00:42→21:41)
[2018-12-15] MEDS: LANOLIN 4.5 OZ OINT TP SCH ×3 (00:43→21:41)
--- NOTE | 2018-12-15 02:13 | NUR ---
Report received from RESP THERAPIST Yoshi Ontiveros Patient transferred by bed @0155. Patient received alert/orinetedx3. Denied pain and no SOB. Patient continued on 3liters oxygen via nasal canula. Respiration even and unlabored. V/S WNL. Patient's in the room. Patient instructed call for help as needed. Bed in lower position,locked. Call pickering within reach. Will continue to monitor.
[2018-12-15] MEDS: IPRATROPIUM BROMIDE 0.02% 2.5 ML NEB NEB SCH ×2 (03:18→20:13)
[2018-12-15] MEDS: ALBUTEROL SULF 0.083% NEB SOLN 3 ML NEB NEB SCH ×2 (03:18→20:13)
[2018-12-15] MEDS: LEVOTHYROXINE SODIUM 50 MCG TAB PO SCH (05:18)
[2018-12-15] MEDS: NITROGLYCERIN 2% OINT 1 GM PKT TOP SCH ×4 (05:19→18:08)
--- NOTE | 2018-12-15 05:28 | NUR ---
Patient refused soap suds enema at this time. Patient stated "I want to wait this is too early". Will continue to monitor.
--- NOTE | 2018-12-15 07:05 | NUR ---
Report given to AM RN, walking round done.
[2018-12-15] MEDS: INSULIN LISPRO 100 UNIT/1 ML 3ML VIAL SQ SCH ×4 (07:30→21:41)
[2018-12-15] MEDS: PANTOPRAZOLE SOD 40 MG TABEC PO SCH (07:30)
[2018-12-15] MEDS: DOCUSATE SODIUM 100 MG CAP PO SCH ×2 (09:00→16:56)
[2018-12-15] MEDS: CHLORTHALIDONE 25 MG TAB PO SCH (09:59)
[2018-12-15] MEDS: FENOFIBRATE 145 MG TAB PO SCH (09:59)
[2018-12-15] MEDS: AZITHROMYCIN 250 MG TAB PO SCH (09:59)
[2018-12-15] MEDS: HEPARIN SOD (PORCINE) 5,000 UNIT/ML VIAL SC SCH ×2 (10:03→21:40)
[2018-12-15] MEDS: HYDROCODONE/APAP 7.5MG-325MG 1 EA TAB PO PRN (10:04)
[2018-12-15] MEDS: MAGNESIUM HYDROXIDE 30 ML UDC PO PRN (10:05)
--- NOTE | 2018-12-15 10:34 | NUR ---
Rounds by Dr. Garcia and Dr. Tomas Johnson, Patient OOB this morning to chair and assisted to commode and attempted BM but unsuccessful, offered MOM, colace, orders for Golytely, and KUB ordered. Chest tube in place draining and no resp distress, will monitor
[2018-12-15] MEDS ORDERED: PEG (High)/E-LYTE SOLN 4,000 ML BTL PO ONE (10:40)
[2018-12-15] MEDS: ENALAPRIL MALEATE 5 MG TAB PO SCH ×2 (10:55→16:57)
[2018-12-15] MEDS ORDERED: METHYLNALTREXONE BROMIDE 12 MG/0.6 ML VIAL SQ NR (11:00)
--- NOTE | 2018-12-15 11:08 | NUR ---
Patient picked up for KUB at this time
--- NOTE | 2018-12-15 11:18 | NUR ---
Ok to resume PT and orders in place per Dr. Garcia and Hardy
--- NOTE | 2018-12-15 12:39 | NUR ---
RECEIVED REQUEST FOR CM FOR REFERRAL TO [facility]. CALL TO DR. GIMENEZ'S OFFICE @ [phone]. SPOKE W OFFICE STAFF. STATES THEY WILL HAVE DR. GIMENEZ CALL CM. CONTACT INFO WAS GIVEN. REFERRAL NEEDS TO BE CALLED BY THE PHYSICIAN TO [phone]/ OPTION 1 OR FAX PHYSICIAN REFERRAL FORM. WILL PLACE FORM ON FRONT OF THE PT.'S CHART.
[2018-12-15] MEDS ORDERED: METHYLNALTREXONE BROMIDE 12 MG/0.6 ML VIAL SQ ONE (13:30)
--- NOTE | 2018-12-15 13:50 | NUR ---
Visit made by the Spiritual Care Department Pastoral Visitor, Keira Christianson. PV provided pastoral presence, prayer, hospitality, and supportive listening. Pastoral Visitor informed pt/family of the scope of [employer] and availability. REINIER ROMAN [employer] Spiritual Care Department O: [phone] Pager: [phone] ([phone] number calling from)
--- NOTE | 2018-12-15 15:05 | Diagnostic Imaging Report ---
EXAM: ABDOMEN-1VIEW (KUB) DATE: 12/15/2018 10:02 AM INDICATION:Constipation COMPARISON: None FINDINGS: Supine views of the abdomen show a normal distribution of air in the small and large bowel. There is moderate air throughout the colon. No specific abnormal soft tissue calcification. No acute bony abnormality. Cholecystectomy clips are noted in the right upper quadrant. There are patchy airspace opacities in the lung bases. IMPRESSION: No bowel dilatation or evidence for bowel obstruction. Signed by: Dr. Joel Jordan M.D. on 12/15/2018 3:01 PM
--- NOTE | 2018-12-15 15:48 | NUR ---
Rounds by Dr. Easley and orders in place for labs, requested to hold off on pain meds at the moment due to patient being drowsy, will monitor
--- NOTE | 2018-12-15 16:37 | NUR ---
KUB results came back and patient with no obstruction, had a large soft BM as assisted to the commode and refusing to take Relistor.
--- NOTE | 2018-12-15 16:57 | NUR ---
Patient refused taking Relistor because he had a BM already and results for KUB just received.
--- NOTE | 2018-12-15 18:08 | NUR ---
Patient OOB and assisted to commode at this time
--- NOTE | 2018-12-15 19:00 | NUR ---
Report and rounds completed. Patient was on BSC. Cleaned and assisted back to bed. SCD's and booties applied. Family at bedside. Chest tube to left side to water seal. Call light within reach. Will continue to monitor.
[2018-12-15] MEDS: SIMVASTATIN 40 MG TAB PO SCH (21:11)
[2018-12-16] VITALS (8 sets, daily range): BP systolic 94–130; BP diastolic 52–72
[2018-12-16] MEDS: NITROGLYCERIN 2% OINT 1 GM PKT TOP SCH ×4 (00:57→17:10)
[2018-12-16] MEDS: LEVOTHYROXINE SODIUM 50 MCG TAB PO SCH (06:00)
--- NOTE | 2018-12-16 06:00 | NUR ---
10 ml out on chest tube with water seal. Will continue to monitor.
[2018-12-16] MEDS: ALBUTEROL SULF 0.083% NEB SOLN 3 ML NEB NEB SCH ×6 (07:00→23:20)
[2018-12-16] MEDS: IPRATROPIUM BROMIDE 0.02% 2.5 ML NEB NEB SCH ×6 (07:00→23:20)
[2018-12-16] MEDS: INSULIN LISPRO 100 UNIT/1 ML 3ML VIAL SQ SCH ×4 (07:30→20:47)
[2018-12-16] MEDS: PANTOPRAZOLE SOD 40 MG TABEC PO SCH (07:30)
[2018-12-16] MEDS: FENOFIBRATE 145 MG TAB PO SCH (09:00)
[2018-12-16] MEDS: DOCUSATE SODIUM 100 MG CAP PO SCH ×2 (09:00→17:00)
[2018-12-16] MEDS: HEPARIN SOD (PORCINE) 5,000 UNIT/ML VIAL SC SCH ×2 (09:00→20:51)
[2018-12-16] MEDS: CHLORTHALIDONE 25 MG TAB PO SCH (09:00)
[2018-12-16] MEDS: ENALAPRIL MALEATE 5 MG TAB PO SCH ×2 (09:00→17:00)
--- NOTE | 2018-12-16 09:23 | NUR ---
Taken to [facility] [facility] [employer] via his own bed by [employer] personnel. RAYMUNDO LYNN.
--- NOTE | 2018-12-16 09:24 | NUR ---
Disregard previous entry
[2018-12-16] MEDS: LANOLIN 4.5 OZ OINT TP SCH ×2 (09:42→21:08)
[2018-12-16] MEDS: BALSAM PERU/CASTOR OIL 60 GM OINT...G. TP SCH ×2 (09:42→21:08)
--- NOTE | 2018-12-16 13:20 | Consultation ---
DATE OF CONSULTATION: 12/12/2018 HISTORY OF PRESENT ILLNESS: Mr. Causey is a 78-year-old white male referred to me by Dr. Izquierdo for evaluation of findings of the CAT scan and VATS findings by Dr. Jimmy Dash. He had called me personally on 12/12/2018 to see the patient. Subsequently, the patient was seen and interviewed. I have spoken to the patient, , the brother, the [id number], who is also a physician, a psychologist, about the findings. SOCIAL HISTORY: History of smoking filtered cigarettes. History of being exposed to asbestos in the past. The patient had pleural effusion. Subsequently, the patient had pleural cytology which was reported negative. FAMILY HISTORY: Noncontributory. ALLERGIES: REPORTED NONE. MEDICATIONS: At this time: 1. Albuterol. 2. Ceftriaxone. 3. Tylenol. 4. Simvastatin. 5. Zithromax. 6. Ondansetron. 7. Lactated Ringer's. 8. Fenofibrate. 9. Chlorthalidone. 10. Nitroglycerin. 11. Insulin. 12. Protonix. 13. Docusate. 14. Enalapril. 15. Synthroid. 16. Potassium. 17. Magnesium. 18. Hydromorphone. REVIEW OF SYSTEMS: HEENT: Normal. CARDIAC: History of hypertension and hyperlipidemia. RESPIRATORY: The patient has right-sided pleural effusion. The patient had VATS on the right side. GI: Normal. : Normal. MUSCULOSKELETAL: Normal. SKIN AND BREASTS: Normal. NEUROENDOCRINE: History of hypothyroidism, history of diabetes. PHYSICAL EXAMINATION: GENERAL: Moderately built male, right chest tube. No palpable adenopathy, anemic. HEART: Within normal limits. LUNGS: Diminished breath sounds. ABDOMEN: Soft. RECTAL: Deferred. CENTRAL NERVOUS SYSTEM: Essentially normal. EXTREMITIES: Essentially normal. LABORATORY DATA: Hemoglobin of 9.6, hematocrit of 30.5, white count of 17,400, and platelets of 368,000. Sodium 138, potassium 4.1, chloride 72, CO2 28, BUN 21, creatinine 1.01. Glucose 107. INR 0.96. Bilirubin 0.5, SGOT 27, SGPT 28, and alkaline phosphatase 60. IMPRESSION: 1. Anemia of chronic disease. 2. Leukocytosis. 3. Transient hypercalcemia of 10.5. 4. Hypoalbuminemia of 3.3. 5. 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 6. Right pleural mass 5.2 cm by CAT scan. 7. Right paratracheal lymph node 1.4 cm by CAT scan. 8. Mediastinal nodes by CAT scan. 9. Focal left lower lobe mass 2.4 cm by CAT scan. 10. Pulmonary interstitial fibrosis by CAT scan. 11. Hypertension. 12. Hyperlipidemia. 13. Hypothyroidism. PLAN/COMMENTS/SUGGESTIONS: 1. Await biopsy markers such as CEA are suggested as the lesions are on both the sides and he had smoked filter cigarettes. I would also be concerned about adenocarcinoma of the lung in the differential diagnosis. 2. I have seen this patient and spoken to the family including the brother, [id number], , and him on 12/12 and 12/13. Subsequently, on 12/14, when I was about to make rounds, Dr. Garcia stopped me to see the patient. I was told "you are fired.". Thank you very much for allowing me to participate in the management of this patient. Enriqueta Moore MD MAQ/MODL /[id number] cc: MD Jimmy Almeida MD
--- NOTE | 2018-12-16 19:00 | NUR ---
Report received from AM MICHAEL Nicole. Patient received resting comfortably on his bed. Denied pain and no SOB,continued on 2liters oxygen via nasal canula. at the bedside. left Chest tube continued to water seal. Patient instructed to call for help as needed, verbalized understand. Bed in lower position,locked. Call pickering within reach.
[2018-12-16] MEDS: SIMVASTATIN 40 MG TAB PO SCH (20:50)
[2018-12-17] VITALS (8 sets, daily range): BP systolic 109–130; BP diastolic 54–74
[2018-12-17] MEDS: NITROGLYCERIN 2% OINT 1 GM PKT TOP SCH ×5 (00:14→23:49)
[2018-12-17] MEDS: IPRATROPIUM BROMIDE 0.02% 2.5 ML NEB NEB SCH ×6 (03:10→23:15)
[2018-12-17] MEDS: ALBUTEROL SULF 0.083% NEB SOLN 3 ML NEB NEB SCH ×6 (03:10→23:15)
[2018-12-17] MEDS: LEVOTHYROXINE SODIUM 50 MCG TAB PO SCH (06:22)
[2018-12-17] MEDS: PANTOPRAZOLE SOD 40 MG TABEC PO SCH (07:30)
[2018-12-17] MEDS: INSULIN LISPRO 100 UNIT/1 ML 3ML VIAL SQ SCH ×4 (07:30→21:00)
[2018-12-17] MEDS: DOCUSATE SODIUM 100 MG CAP PO SCH ×2 (09:17→16:49)
[2018-12-17] MEDS: ENALAPRIL MALEATE 5 MG TAB PO SCH ×2 (09:17→16:50)
[2018-12-17] MEDS: FENOFIBRATE 145 MG TAB PO SCH (09:17)
[2018-12-17] MEDS: CHLORTHALIDONE 25 MG TAB PO SCH (09:17)
[2018-12-17] MEDS: HEPARIN SOD (PORCINE) 5,000 UNIT/ML VIAL SC SCH ×2 (09:28→22:01)
--- NOTE | 2018-12-17 11:10 | NUR ---
chest tube removed by Dr Dash. patient tollerated well. insertion site covered by Vaseline gauze and 4x4 and tape.
[2018-12-17] MEDS: LANOLIN 4.5 OZ OINT TP SCH ×2 (12:06→21:59)
[2018-12-17] MEDS: BALSAM PERU/CASTOR OIL 60 GM OINT...G. TP SCH ×2 (12:06→21:59)
[2018-12-17] MEDS: SIMVASTATIN 40 MG TAB PO SCH (21:56)
[2018-12-18] MEDS: IPRATROPIUM BROMIDE 0.02% 2.5 ML NEB NEB SCH ×4 (03:20→14:40)
[2018-12-18] MEDS: ALBUTEROL SULF 0.083% NEB SOLN 3 ML NEB NEB SCH ×4 (03:20→14:40)
[2018-12-18 04:34] VITALS: BP 122/66
[2018-12-18] MEDS: LEVOTHYROXINE SODIUM 50 MCG TAB PO SCH (05:44)
[2018-12-18] MEDS: NITROGLYCERIN 2% OINT 1 GM PKT TOP SCH ×2 (05:44→14:27)
--- NOTE | 2018-12-18 06:58 | NUR ---
Report given to MICHAEL Espana,walking round done.
[2018-12-18] MEDS: INSULIN LISPRO 100 UNIT/1 ML 3ML VIAL SQ SCH ×3 (07:30→16:23)
[2018-12-18 07:39] VITALS: BP 116/66
[2018-12-18] MEDS ORDERED: CHLORTHALIDONE25 MG PO (09:17)
[2018-12-18] MEDS: HEPARIN SOD (PORCINE) 5,000 UNIT/ML VIAL SC SCH (10:15)
[2018-12-18] MEDS: PANTOPRAZOLE SOD 40 MG TABEC PO SCH (10:15)
[2018-12-18] MEDS: CHLORTHALIDONE 25 MG TAB PO SCH (10:15)
[2018-12-18] MEDS: FENOFIBRATE 145 MG TAB PO SCH (10:16)
[2018-12-18] MEDS: ENALAPRIL MALEATE 5 MG TAB PO SCH ×3 (10:16→16:39)
[2018-12-18] MEDS: DOCUSATE SODIUM 100 MG CAP PO SCH ×3 (10:16→16:39)
[2018-12-18] MEDS: LANOLIN 4.5 OZ OINT TP SCH (10:17)
[2018-12-18] MEDS: BALSAM PERU/CASTOR OIL 60 GM OINT...G. TP SCH (10:17)
--- NOTE | 2018-12-18 11:16 | Diagnostic Imaging Report ---
EXAM: CHEST 2 VIEWS DATE: 12/18/2018 8:00 AM INDICATION:Pleural effusion COMPARISON: Chest x-ray, 12/14/2018 FINDINGS: Lines and tubes: Stable position of right IJ catheter. Mild enlargement of the cardiac silhouette. Improvement of pulmonary vascular congestion. Persistent small left pleural effusion and atelectasis or consolidation at the left lung base. No pneumothorax. Upper abdomen unremarkable. There are surgical clips in the upper abdomen. No acute bony abnormality. IMPRESSION: Stable cardiomegaly with improvement of pulmonary vascular congestion. Small left pleural effusion again noted, with atelectasis or consolidation at the left lung base. Signed by: Dr. Joel Jordan M.D. on 12/18/2018 11:12 AM
[2018-12-18 11:56] VITALS: BP 112/68
--- NOTE | 2018-12-18 13:40 | NUR ---
EDUCATED ABOUT IMM, SIGNED, FILED IN CHART, WITH COPY LEFT WITH FAMILY AT BEDSIDE.
[2018-12-18 16:13] VITALS: BP 94/59
--- NOTE | 2018-12-18 17:45 | NUR ---
Patient discharged home, verbalized understanding. Escorted in wheel chair to meet ride in front of hospital.
--- NOTE | 2018-12-19 07:18 | Discharge Summary ---
Patient of Dr. Montero, Dr. Jimmy Dash, Dr. Izquierdo, and Dr. German. HOSPITAL COURSE: Unfortunate 78-year-old gentleman admitted with severe shortness of breath, referred by Dr. Montero's office. He has a history of hypertension, hyperlipidemia, and hypothyroidism. BPH treated with microwave therapy. He smoked for many years, 60-pack years, one and half packs a day for 40. Worked in the [employer] rooms in the [place] for [employer]. He was found to be in respiratory insufficiency with a large left pleural effusion. He required intubation and mechanical ventilator support. Chest tube was placed with evacuation of the large pleural effusion. Atypical cells were seen in the fluid, but not diagnostic of malignancy. Dr. Jimmy Dash was consulted and the patient underwent bronchoscopic biopsy. Massive tumor was seen in the pleural space. Multiple biopsies were checked and obtained was also suggestive of tumor on the right side on CT scan. Pathology is still pending at this time. The patient gradually improved. The pleural fluid drainage stopped. He was hypoxic on ambulation, but not at rest. Saturation falling as low as 74% to 95% at rest. The patient is to be discharged on home oxygen. Continue enalapril 5 mg b.i.d., Levoxyl 50 mcg a day, chlorthalidone 25 mg, fenofibrate 145 mg. Discharge to be followed by Dr. Montero. Daughter had some disagreement with attending and funeral pre need consultant. and the patient both apologized for this prior to discharge. They will follow up with Dr. Montero and discuss Oncology second opinion and follow up once the biopsy has been obtained. Differential diagnosis includes a mesothelial, adenocarcinoma, possibly melanoma. He will also follow up with Dr. Dash and myself. MD ARTEMIO Almeida/MODL /[id number]
[2018-12-25 09:57] LABS: ABG PH 7.18 (7.31-7.41)
[2018-12-25 09:58] LABS: ABG HCO3 26 mmol/L (23-28); ABG PCO2 69 mmHg (41-51); ABG PO2 101 mmHg (80-105)
--- NOTE | 2019-01-01 02:32 | Discharge Summary ---
ADDENDUM: The patient has a stage IV poorly differentiated neoplasm. The pathologist was unable to further define this. 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 To the best of my knowledge, this is not a specific diagnosis, but suggests a poorly differentiated tumor, CLINICAL IMPRESSION: Poorly differentiated carcinoma based on nonspecific pathology report and clinical findings, MD ARTEMIO Almeida/MODKy /[id number] MTDD
== END 2018-12-18 17:43 | disposition home or self-care (01) | DRG 163 ==
LOC: ER 17:21 → ERHOLD 19:49 → ICU 23:58 → MED/SURG3 12-07 18:30 → ICU 12-11 14:50 → IMCU 12-15 02:29
PROVIDERS: ADMIT Internal Medicine; ATTEND Internal Medicine
PROC: 0W9B30Z Drainage of Left Pleural Cavity with Drainage Device, Percutaneous Approach (ICD-10-PCS; 2018-12-03)
PROC: 5A1945Z Respiratory Ventilation, 24-96 Consecutive Hours (ICD-10-PCS; 2018-12-03)
PROC: 0BH17EZ Insertion of Endotracheal Airway into Trachea, Via Natural or Artificial Opening (ICD-10-PCS; 2018-12-03)
PROC: 0BBP4ZZ Excision of Left Pleura, Percutaneous Endoscopic Approach (ICD-10-PCS; 2018-12-11)
PROC: 0BNL4ZZ Release Left Lung, Percutaneous Endoscopic Approach (ICD-10-PCS; principal; 2018-12-11 10:22)
DX: C38.4 Malignant neoplasm of pleura (principal); J15.9 Unspecified bacterial pneumonia; J80 Acute respiratory distress syndrome; I50.22 Chronic systolic (congestive) heart failure; J91.8 Pleural effusion in other conditions classified elsewhere; I11.0 Hypertensive heart disease with heart failure; E78.5 Hyperlipidemia, unspecified; E03.9 Hypothyroidism, unspecified; Z90.49 Acquired absence of other specified parts of digestive tract; Z82.49 Family history of ischemic heart disease and other diseases of the circulatory system; Z87.891 Personal history of nicotine dependence; D63.8 Anemia in other chronic diseases classified elsewhere; E83.52 Hypercalcemia; R77.1 Abnormality of globulin; Z77.090 Contact with and (suspected) exposure to asbestos; N40.0 Benign prostatic hyperplasia without lower urinary tract symptoms
CPT/HCPCS: 31500; 32557; 36415; 36600; 51700; 71045; 71046; 71260; 74018; 74470; 80048; 80053; 81001; 82330; 82378; 82550; 82553; 82805; 82945; 82948; 83605; 83615; 83735; 83880; 83970; 84157; 84311; 84443; 84478; 84484; 85025; 85610; 85730; 86850; 86900; 86920; 87040; 87070; 87086; 87116; 87205; 87206; 87400; 88112; 88305; 88307; 88331; 88342; 89051; 93005; 93306; 94002; 94003; 94640; 94645; 94660; 96372; 96375; 97139; 99285; C1769; J0330; J0456; J0690; J0696; J1100; J1644; J1940; J2001; J2250; J2370; J2405; J7030; J7050; J7121; P9016; Q9967